=== PATIENT | female | born 1955 | race American Indian/Alaskan Native ===

== ENCOUNTER 2016-09-17 12:28 | Emergency (ER) | payer MEDICARE ==
[2016-09-17] MEDS ORDERED: Naproxen 550 mg Tab PO STA (13:40)
[2016-09-17] MEDS ORDERED: Naproxen 550 mg Tab PO ONE (13:48)
[2016-09-17] MEDS ORDERED: Bacitracin 500 Units/gm Oint Foilpak UD TOP ONE (13:51)
[2016-09-17] MEDS ORDERED: Bacitracin 500 Units/gm Oint Foilpak UD ONE (14:01)
--- NOTE | 2016-09-17 14:16 | C.PDOC ---
History Of Present Illness 60-year-old female, presents to the emergency department with complaints of left knee pain s/p mechanical fall just prior to arrival. Also notes that her leg ended up under her causing some lower leg pain. No change in sensation. No other trauma or pain. Pt was noted to have elevated BP on scene. She has a h/o HTN and took her BP medication this morning. Denies chest pain, dizziness, SOB, head trauma, or any other associated symptoms. No other complaints at this time. Time Seen by Provider: 09/17/16 13:32 Chief Complaint (Nursing): Lower Extremity Problem/Injury History Per: Patient History/Exam Limitations: no limitations Past Medical History Reviewed: Historical Data, Nursing Documentation, Vital Signs Vital Signs: Last Vital Signs Temp 98.2 F 09/17/16 14:38 Pulse 75 09/17/16 14:38 Resp 16 09/17/16 14:38 BP 155/75 H 09/17/16 14:38 Pulse Ox 99 09/17/16 14:50 - Medical History PMH: HTN Denies: Diabetes, Hepatitis, HIV, Seizures, Sexually Transmitted Disease Family History: States: Unknown Family Hx - Social History Hx Tobacco Use: No Hx Alcohol Use: Yes Hx Substance Use: No - Immunization History Hx Tetanus Toxoid Vaccination: No Hx Influenza Vaccination: Yes Hx Pneumococcal Vaccination: Yes Review Of Systems Except As Marked, All Systems Reviewed And Found Negative. Constitutional: Negative for: Fever, Chills Cardiovascular: Negative for: Chest Pain, Palpitations Respiratory: Negative for: Shortness of Breath Gastrointestinal: Negative for: Vomiting Musculoskeletal: Positive for: Leg Pain Skin: Negative for: Rash Neurological: Negative for: Weakness, Numbness, Headache, Dizziness Physical Exam - Physical Exam Appears: Non-toxic, No Acute Distress Skin: Warm, Dry, No Rash Head: Atraumatic, Normacephalic Eye(s): bilateral: Normal Inspection, EOMI Nose: Normal Oral Mucosa: Moist Lips: Normal Appearing Neck: Normal ROM Chest: Symmetrical Cardiovascular: Rhythm Regular Respiratory: Normal Breath Sounds, No Accessory Muscle Use Extremity: No Calf Tenderness, No Deformity, Other (Left knee: superficial abrasion. Mild tenderness to palpation. Decreased ROM secondary to pain and echymosis to left medial lower leg) Pulses: Left Dorsalis Pedis: Normal, Right Dorsalis Pedis: Normal Neurological/Psych: Oriented x3, Normal Speech, Normal Sensation ED Course And Treatment O2 Sat by Pulse Oximetry: 99 - Other Rad Knee XR X-Ray: Viewed By Me, Read By Radiologist Interpretation: PROCEDURE: Left Knee Radiographs. HISTORY: Pain. COMPARISON : None. FINDINGS: BONES: No acute fracture. JOINTS: Mild tricompartmental osteoarthritis. No articular erosion. JOINT EFFUSION: None. OTHER FINDINGS: None. IMPRESSION: Mild tricompartmental osteoarthritis. No acute fracture. Leg XR X-Ray: Viewed By Me, Read By Radiologist Interpretation: PROCEDURE: Radiographs of the left tibia and fibula. HISTORY: trauma. COMPARISON: None available. TECHNIQUE: Frontal and lateral views obtained. FINDINGS: BONES: No fracture or destructive lesion. JOINT SPACES: Unremarkable. OTHER FINDINGS: None. IMPRESSION: Unremarkable radiographs of the left tibia and fibula. Progress Note: Wound cleansed and dress by RN. Knee brace applied. Crutches given. Pt instructed RICE and follow up with ortho in 1-2 days. Disposition - Disposition Referrals: Mirella Tyler MD [Staff Provider] - Disposition: HOME/ ROUTINE Disposition Time: 14:15 Condition: STABLE Additional Instructions: Rest, ice and elevate the area. Follow up with bone doctor in 1-2 days. Instructions: Knee Pain (ED) - Clinical Impression Clinical Impression: HTN (hypertension), Knee contusion - Scribe Statement The provider has reviewed the documentation as recorded by the Scrmatt Tyler All medical record entries made by the Scribe were at my direction and personally dictated by me. I have reviewed the chart and agree that the record accurately reflects my personal performance of the history, physical exam, medical decision making, and the department course for this patient. I have also personally directed, reviewed, and agree with the discharge instructions and disposition.
[2016-09-17 14:38] VITALS: BP 155/75; PULSE 75; RESP 16; TEMP 98.2
[2016-09-17 14:49] VITALS: O2SAT 99
--- NOTE | 2016-09-17 15:49 | RAD ---
PROCEDURE: Radiographs of the left tibia and fibula. HISTORY: trauma COMPARISON: None available. TECHNIQUE: Frontal and lateral views obtained. FINDINGS: BONES: No fracture or destructive lesion. JOINT SPACES: Unremarkable. OTHER FINDINGS: None. IMPRESSION: Unremarkable radiographs of the left tibia and fibula.
--- NOTE | 2016-09-17 15:50 | RAD ---
PROCEDURE: Left Knee Radiographs. HISTORY: Pain. COMPARISON: None. FINDINGS: BONES: No acute fracture. JOINTS: Mild tricompartmental osteoarthritis. No articular erosion. JOINT EFFUSION: None. OTHER FINDINGS: None. IMPRESSION: Mild tricompartmental osteoarthritis. No acute fracture.
== END 2016-09-17 15:35 | disposition home or self-care (01) ==
LOC: C.ER 12:28
DX: S80.02XA Contusion of left knee, initial encounter (principal); W18.30XA Fall on same level, unspecified, initial encounter; I10 Essential (primary) hypertension
CPT/HCPCS: 73562; 73590; 97116; 97161; 99285; G8978; G8979; G8980

== ENCOUNTER 2016-10-25 08:00 | Day surgery (SDC) | payer MEDICARE ==
[2016-10-25] MEDS ORDERED: Propofol 10 mg/ml Inj (20 ML) ONE ×2 (09:32→09:41)
[2016-10-25] MEDS ORDERED: Simethicone 40 mg/0.6 ml Liquid (30 ml) ONE (09:43)
== END 2016-10-25 11:00 | disposition home or self-care (01) ==
LOC: C.ENDO 08:00
PROVIDERS: ATTEND Internal Medicine Gastroenterology
DX: R19.7 Diarrhea, unspecified (principal); K64.2 Third degree hemorrhoids
CPT/HCPCS: 45380; 88305; 88313; 88342; J2704

== ENCOUNTER 2017-06-15 13:42 | Inpatient (IN) | payer MEDICARE ==
[2017-06-15] MEDS ORDERED: Sodium Chloride 0.9% 1,000 ML IV ONE (14:23)
--- NOTE | 2017-06-15 14:27 | C.PDOC ---
History Of Present Illness 61F c/o sore throat worsening for 2 days. she also reports cough and says today she coughed and spit up a small amount with her sputum. Time Seen by Provider: 06/15/17 13:59 Chief Complaint (Nursing): Shortness Of Breath Past Medical History Vital Signs: Last Vital Signs Temp 97.7 F 06/18/17 16:16 Pulse 71 06/18/17 16:16 Resp 20 06/18/17 16:16 BP 126/83 06/18/17 16:16 Pulse Ox 93 L 06/18/17 07:02 - Medical History PMH: HTN Denies: Diabetes, Hepatitis, HIV, Seizures, Sexually Transmitted Disease Family History: States: Other Other Family History: nc - Social History Hx Tobacco Use: No Hx Alcohol Use: No Hx Substance Use: No - Immunization History Hx Tetanus Toxoid Vaccination: No Hx Influenza Vaccination: Yes Hx Pneumococcal Vaccination: Yes Review Of Systems Except As Marked, All Systems Reviewed And Found Negative. Constitutional: Negative for: Fever, Chills ENT: Positive for: Throat Pain Cardiovascular: Negative for: Chest Pain Respiratory: Positive for: Cough. Negative for: Shortness of Breath Gastrointestinal: Positive for: Nausea, Vomiting. Negative for: Abdominal Pain , Diarrhea Physical Exam - Physical Exam Appears: Non-toxic Skin: Warm, Dry Head: Atraumatic Eye(s): bilateral: PERRL Nose: No Epistaxis Oral Mucosa: Moist Tongue: No Swelling, No Lesions Lips: No Swelling, No Lesions Throat: Exudate, No Drooling, Other (tonsils symmetric, uvual midline) Neck: Normal ROM, Supple Cardiovascular: Rhythm Regular Respiratory: No Decreased Breath Sounds, No Accessory Muscle Use, No Rales, No Rhonchi, No Stridor, No Wheezing Gastrointestinal/Abdominal: Soft, No Tenderness Extremity: No Swelling Neurological/Psych: Oriented x3, Other (no focla deficits) ED Course And Treatment - Laboratory Results Result Diagrams: 06/15/17 15:05 06/15/17 15:05 O2 Sat by Pulse Oximetry: 92 Medical Decision Making Medical Decision Making: Case discussed with Dr. Martin who recommends Vancomycin, Azactam IV, and Bactrim PO. Disposition - Disposition Disposition: HOSPITALIZED Disposition Time: 17:43 Condition: STABLE - Clinical Impression Clinical Impression: Pneumonia
[2017-06-15] MEDS ORDERED: Sodium Chloride 0.9% 1,000 ML ONE (14:33)
[2017-06-15 15:10] LABS: BASO % 0.3 % (0.0-2.0); EOS # 0.4 K/uL (0.0-0.7); EOS % 3.8 % (0.0-4.0); HEMOGLOBIN 13.2 g/dL (11.0-16.0); LYMPH # 1.2 K/uL (1.0-4.3); LYMPH % 12.2 % (20.0-40.0); MEAN CELL VOLUME 92.1 fL (81.0-99.0); MEAN CORPUSCULAR HEMOGLOBIN 31.1 pg (27.0-31.0); MEAN CORPUSCULAR HGB CONC 33.8 g/dL (33.0-37.0); MEAN PLATELET VOLUME 7.9 fL (7.2-11.7); MONO # 0.6 K/uL (0.0-0.8); MONO % 5.6 % (0.0-10.0); NEUT # 7.8 K/uL (1.8-7.0); NEUT % 78.1 % (50.0-75.0); RBC 4.25 Mil/uL (3.80-5.20); RED CELL DISTRIBUTION WIDTH 13.5 % (11.5-14.5)
[2017-06-15 15:28] LABS: ALB/GLOB RATIO 1.1 (1.0-2.1); ALBUMIN 4.4 g/dL (3.5-5.0); ALT/SGPT 24 U/L (9-52); AST/SGOT 31 U/L (14-36); BLOOD UREA NITROGEN 14 mg/dL (7-17); CALCIUM 8.5 mg/dl (8.6-10.4); GFR AFRICAN-AMERICAN > 60; GFR NON-AFRICAN AMERICAN > 60
[2017-06-15] MEDS ORDERED: Iodixanol 320 mg/ml 150 ml Bottle IV ONE (17:09)
--- NOTE | 2017-06-15 17:09 | CT ---
PROCEDURE: CT Chest with contrast (Pulmonary Angiogram) HISTORY: hemoptysis COMPARISON: None available. TECHNIQUE: Axial computed tomography images were obtained of the chest in the pulmonary arterial phase of enhancement. Coronal and sagittal reformatted images were created and reviewed. Intravenous contrast dose: 100 mL Visipaque Radiation dose: Total exam DLP = 509.66 mGy-cm. This CT exam was performed using one or more of the following dose reduction techniques: Automated exposure control, adjustment of the mA and/or kV according to patient size, and/or use of iterative reconstruction technique. FINDINGS: PULMONARY ARTERIES: Unremarkable. No pulmonary embolism. AORTA: No acute findings. No thoracic aortic aneurysm. LUNGS: Airspace consolidation noted at the bilateral lower lobes may represent a pneumonia or aspiration. Perihilar opacities also seen at the right chest. Mild lower lobe bronchiectasis seen more prominent on the left side. The upper lobes are clear. PLEURAL SPACES: Unremarkable. No effusion or pneuomothorax. HEART: The heart is mildly enlarged. No evidence of pericardial effusion. LYMPH NODES: Mildly enlarged precarinal a and/or right paratracheal lymph nodes are noted. BONES, CHEST WALL: Unremarkable. No fracture or destructive lesion OTHER FINDINGS: Unremarkable. IMPRESSION: No evidence of pulmonary embolus. Airspace consolidation at the lower lobes and right perihilar region. The differential consideration includes multifocal pneumonia, aspiration, infection or inflammatory process of the lungs. Mildly enlarged precarinal and right paratracheal lymph node. Mild cardiomegaly.
--- NOTE | 2017-06-15 17:27 | RAD ---
HISTORY: cough COMPARISON: Comparison is made with 08/24/2012 TECHNIQUE: Chest PA and lateral FINDINGS: LUNGS: Hazy opacity noted at the right lung base may represent atelectasis or pneumonia. PLEURA: Blunting of the right costophrenic angle noted. CARDIOVASCULAR: Normal. OSSEOUS STRUCTURES: No significant abnormalities. VISUALIZED UPPER ABDOMEN: Normal. OTHER FINDINGS: None. IMPRESSION: Right lung base infiltrate and hazy opacity may represent atelectasis or pneumonia. Blunting of the right costophrenic angle.
[2017-06-15] MEDS ORDERED: Moxifloxacin IV 400mg/250ml NS 400 MG/250 ML BAG IVPB ONE (17:33)
[2017-06-15] MEDS ORDERED: Vancomycin 500 mg Inj IVPB STA (17:33)
[2017-06-15] MEDS ORDERED: Morphine 4 MG/ML VIAL ONE (17:48)
[2017-06-15] MEDS ORDERED: Tmp-Smz 800 mg-160 mg DS Tab ONE (17:48)
[2017-06-15] MEDS: Tmp-Smz 800 mg-160 mg DS Tab PO SCH (17:54)
[2017-06-15] MEDS: Aztreonam 1 GM in Sodium Chloride 0.9% 100 ML IVPB SCH (18:15)
--- NOTE | 2017-06-15 19:29 | CP.PCM.HP ---
Past Patient History - Past Social History Smoking Status: Never Smoked - CARDIAC Hx Hypertension: Yes - PULMONARY Hx Tuberculosis: No - NEUROLOGICAL Hx Seizures: No - HEMATOLOGICAL/ONCOLOGICAL Hx Human Immunodeficiency Virus (HIV): No - GENITOURINARY/GYNECOLOGICAL Hx Sexually Transmitted Disorders: No - PSYCHIATRIC Hx Substance Use: No - SURGICAL HISTORY Hx Surgeries: Yes Other/Comment: ANEURYSM CLIP. CYST REMOVAL Meds Allergies/Adverse Reactions: Allergies Allergy/AdvReac Type Severity Reaction Status Date / Time Penicillins Allergy Verified 06/15/17 14:08 shellfish Allergy Severe RASH Uncoded 09/17/16 12:37 seafood Allergy Uncoded 06/15/17 14:08 Results - Vital Signs Recent Vital Signs: Last Vital Signs Temp 99.2 F 06/15/17 14:11 Pulse 98 H 06/15/17 19:16 Resp 16 06/15/17 19:16 BP 128/76 06/15/17 19:16 Pulse Ox 94 L 06/15/17 19:16 - Labs Result Diagrams: 06/15/17 15:05 06/15/17 15:05 Labs: Laboratory Results - last 24 hr 06/15/17 06/15/17 06/15/17 14:22 14:23 15:05 WBC 10.0 RBC 4.25 Hgb 13.2 Hct 39.1 MCV 92.1 MCH 31.1 H MCHC 33.8 RDW 13.5 Plt Count 154 MPV 7.9 Neut % (Auto) 78.1 H Lymph % (Auto) 12.2 L [place] % (Auto) 5.6 Eos % (Auto) 3.8 Baso % (Auto) 0.3 Neut # 7.8 H Lymph # 1.2 [place] # 0.6 Eos # 0.4 Baso # 0.0 Sodium Potassium Chloride Carbon Dioxide Anion Gap BUN Creatinine Est GFR ( Amer) Est GFR (Non-Af Amer) Random Glucose Calcium Total Bilirubin AST ALT Alkaline Phosphatase Total Protein Albumin Globulin Albumin/Globulin Ratio Influenza Typ A,B (EIA) Negative for flu a/b Grp A Beta Strep Ag Negative Blood Type Antibody Screen 06/15/17 06/15/17 15:05 15:16 WBC RBC Hgb Hct MCV MCH MCHC RDW Plt Count MPV Neut % (Auto) Lymph % (Auto) [place] % (Auto) Eos % (Auto) Baso % (Auto) Neut # Lymph # [place] # Eos # Baso # Sodium 134 Potassium 3.8 Chloride 98 Carbon Dioxide 26 Anion Gap 13 BUN 14 Creatinine 0.9 Est GFR ( Amer) > 60 Est GFR (Non-Af Amer) > 60 Random Glucose 140 H Calcium 8.5 L Total Bilirubin 0.6 AST 31 ALT 24 Alkaline Phosphatase 94 Total Protein 8.3 Albumin 4.4 Globulin 3.9 Albumin/Globulin Ratio 1.1 Influenza Typ A,B (EIA) Grp A Beta Strep Ag Blood Type O POSITIVE Antibody Screen Negative
--- NOTE | 2017-06-16 00:05 | CP.PCM.PN ---
Subjective - Date & Time of Evaluation Date of Evaluation: 06/16/17 Time of Evaluation: 09:00 - Subjective Subjective: h and p dicteted. Objective - Vital Signs/Intake and Output Vital Signs (last 24 hours): Temp Pulse Resp BP Pulse Ox 99.1 F 98 H 20 123/69 94 L 06/15/17 23:15 06/15/17 22:40 06/15/17 22:40 06/15/17 22:40 06/15/17 22:40 - Medications Medications: Current Medications Aspirin (Ecotrin) 81 mg PO DAILY [facility] Clonidine HCl (Catapres) 0.2 mg PO BID [facility] Enoxaparin Sodium (Lovenox) 30 mg SC DAILY [facility] Hydrochlorothiazide (Microzide) 12.5 mg PO DAILY [facility] Aztreonam 1 gm/ Sodium (Chloride) 100 mls @ 200 mls/hr IVPB Q8H [facility] Last Admin: 06/15/17 18:15 Dose: 200 mls/hr Vancomycin HCl 1 gm/ Sodium (Chloride) 250 mls @ 166.7 mls/hr IVPB Q24H [facility] Losartan Potassium (Cozaar) 100 mg PO DAILY [facility] Pantoprazole Sodium (Protonix Ec Tab) 40 mg PO DAILY [facility] Trimethoprim/Sulfamethoxazole (Bactrim Ds Tab) 1 tab PO Q12H [facility] Last Admin: 06/15/17 17:54 Dose: 1 tab - Labs Labs: 06/15/17 15:05 06/15/17 15:05
[2017-06-16] MEDS: Aztreonam 1 GM in Sodium Chloride 0.9% 100 ML IVPB SCH ×3 (01:46→17:34)
[2017-06-16] MEDS: Tmp-Smz 800 mg-160 mg DS Tab PO SCH ×2 (04:59→17:34)
--- NOTE | 2017-06-16 07:42 | HP ---
HISTORY OF PRESENT ILLNESS: This is a 61-year-old female who came to the emergency room with history of severe shortness of breath associated with sore throat. Patient also claims low-grade fever. Patient coughed up blood in the sputum today. So, she came to the emergency room. No history of chest pain. REVIEW OF SYSTEMS: Cardiovascular system: Negative for chest pain. Respiratory system: As mentioned above. Gastrointestinal system: Negative for nausea, vomiting, abdominal pain. Central nervous system: No focal neurological complaints offered. No edema of the legs. Genitourinary: No urinary complaints. Psychiatric: Patient is stable. All other systems are negative. PAST HISTORY: History of hypertension. No diabetes. No myocardial infarction. Patient is HIV positive. FAMILY HISTORY: No known inherited disease. SOCIAL HISTORY: No alcoholism. Nonsmoker. Denies substance abuse. ALLERGIES: PATIENT IS ALLERGIC TO PENICILLIN, SHELLFISH, AND SEA FOODS. MEDICATIONS: Patient's medications are reviewed by me. PHYSICAL EXAMINATION: GENERAL: This is a 61-year-old female awake, comfortable. VITAL SIGNS: Temperature 99.2, pulse 94, respirations 16, blood pressure 135/74 mmHg, pulse ox is 92% on room air. HEENT: Normal. NECK: JVP is flat. Carotids, no bruits. LUNGS: No rales, no wheezing. HEART: S1, S2 normal. No gallop. No murmur. ABDOMEN: Soft, nontender. No organomegaly. CENTRAL NERVOUS SYSTEM: No focal neurological deficits. No edema of the legs. LABORATORY DATA: On admission, CBC is within normal limit. BMP is grossly normal. Chest x-ray shows bilateral infiltrates. IMPRESSION: Pneumonia, human immunodeficiency virus positive, hemoptysis. PLAN: Patient will be admitted to the floor. We will give IV antibiotic. We will get consult with Dr. Martin. Other workup as needed. Abby Vásquez MD
[2017-06-16] MEDS: Pantoprazole 40 mg EC Tab PO SCH (10:33)
[2017-06-16] MEDS: Enoxaparin 30 mg Syringe SC SCH (10:36)
--- NOTE | 2017-06-16 17:10 | CP.PCM.CON ---
History of Present Illness - History of Present Illness History of Present Illness: 61 yo female with Hx HIV HTN OA admitted with severe multifocal pneumonia/ sepsis claims compliance with HIV meds Review of Systems - Constitutional Constitutional: As Per HPI - EENT Eyes: absent: As Per HPI, Blind Spots, Blurred Vision, Change in Vision, Decreased Night Vision, Diplopia, Discharge, Dry Eye, Exophthalmos, Floaters, Irritation, Itchy Eyes, Loss of Peripheral Vision, Pain, Photophobia, Requires Corrective Lenses, Sees Flashes, Spots in Vision, Tunnel Vision, Other Visual Disturbances, Loss of Vision, Other Ears: absent: As Per HPI, Decreased Hearing, Ear Discharge, Ear Pain, Tinnitus, Abnormal Hearing, Disequilibrium, Dizziness, Other Nose/Mouth/Throat: As Per HPI - Breasts Breasts: absent: As Per HPI, Change in Shape, Mass, Pain, Nipple Discharge, Nipple Inversion, Skin Changes, Swelling, Other - Cardiovascular Cardiovascular: As Per HPI - Respiratory Respiratory: As Per HPI, Cough, Dyspnea. absent: Hemoptysis - Gastrointestinal Gastrointestinal: absent: As Per HPI, Abdominal Pain, Belching, Bloating, Change in Bowel Habits, Change in Stool Character, Coffee Ground Emesis, Constipation, Cramping, Diarrhea, Dyspepsia, Dysphagia, Early Satiety, Excessive Flatus, Fecal Incontinence, Heartburn, Hematemesis, Hematochezia, Loose Stools, Melena, Nausea, Odynophagia, Temesmus, Vomiting, Other - Genitourinary Genitourinary: absent: As Per HPI, Change in Urinary Stream, Difficulty Urinating, Dysuria, Flank Pain, Hematuria, Pyuria, Nocturia, Urinary Incontinence, Urinary Frequency, Urinary Hesitance, Urinary Urgency, Voiding Freq/Small Amts, Freq UTI, Hx Renal/Bladder Calculi, Hx /Renal Surgery, Bladder Distension, Other - Reproductive: Female Reproductive:Female: absent: As Per HPI, Amenorrhea, Amenorrhea/ Control, Currently Menstual, Cycle <21 Days, Cycle >35 Days, Cycle Variable, Menses 1-7 Days, Menses >/= 8 Days, Menses Variable, Cycle > 4 Weeks Between, No Menses for 6 Months, Heavy Menses, Light Menses, Normal Menses, Spotting Between Cycles , S/P Hysterectomy, Menopausal, Post Menopausal, Premenarche, Abnormal Vaginal Bleeding, Dysmenorrhea, Dyspareunia, Genital Lesions, Genital Pruritis, Pelvic Pain, Prolapse Symptoms, Sexual Dysfunction, Vaginal Discharge, Vaginal Dryness , Vaginal Odor, Vaginal Pruritis, Other - Menstruation Menstruation: absent: As Per HPI, Amenorrhea, Amenorrhea/ Control, Currently Menstual, Cycle <21 Days, Cycle >35 Days, Cycle Variable, Menses 1-7 Days, Menses >/= 8 Days, Menses Variable, Cycle > 4 Weeks Between, No Menses for 6 Months, Heavy Menses, Light Menses, Normal Menses, Spotting Between Cycles , S/P Hysterectomy, Menopausal, Post Menopausal, Premenarche, Abnormal Vaginal Bleeding, Dysmenorrhea, Other - Musculoskeletal Musculoskeletal: absent: As Per HPI, Abnormal Gait, Arthralgias, Atrophy, Back Pain, Deformity, Joint Swelling, Limited Range of Motion, Loss of Height, Muscle Cramps, Muscle Weakness, Myalgias, Neck Pain, Numbness, Radiating Pain into Limb, Stiffness, Tingling, Other - Integumentary Integumentary: absent: As Per HPI, Acne, Alopecia, Bleeding Lesions, Change in Hair, Change in Nails, Change in Pigmentation, Changing Lesions, Dry Skin, Erythema, Furuncle, Hirsutism, Lesions, New Lesions, Non-Healing Lesions, Photosensitivity, Pruritus, Rash, Skin Pain, Skin Ulcer, Sores, Striae, Swelling , Unusual Bruising, Wounds, Jaundice, Other - Neurological Neurological: absent: As Per HPI, Abnormal Gait, Abnormal Hearing, Abnormal Movements, Abnormal Speech, Behavioral Changes, Burning Sensations, Confusion, Convulsions, Disequilibrium, Dizziness, Numbness, Focal Weakness, Frequent Falls , Headaches, Lack of Coordination, Loss of Vision, Memory Loss, Paresthesias, Radicular Pain, Restless Legs, Sensory Deficit, Syncope, Tingling, Tremor, Vertigo, Weakness, Other Visual Disturbances, Other - Psychiatric Psychiatric: absent: As Per HPI, Abnormal Sleep Pattern, Anhedonia, Anxiety, Auditory Hallucinations, Behavioral Changes, Change in Appetite, Change in Libido, Confusion, Depression, Difficulty Concentrating, Hallucinations, Homicidal Ideation, Hopelessness, Irritability, Memory Loss, Mood Swings, Panic Attacks, Paranoia, Suicidal Ideation, Visual Hallucinations, Tactile Hallucinations, Other - Endocrine Endocrine: absent: As Per HPI, Change in Body Appearance, Change in Libido, Cold Intolorance, Deepening of Voice, Excessive Sweating, Fatigue, Flushing, Heat Intolorance, Increase in Ring/Shoe/Hat Size, Palpitations, Polydipsia, Polyphagia, Polyuria, Other - Hematologic/Lymphatic Hematologic: absent: As Per HPI, Easy Bleeding, Easy Bruising, Lymphadenopathy, Other Past Patient History - Past Medical History & Family History Past Medical History?: Yes - Past Social History Smoking Status: Never Smoked - CARDIAC Hx Hypertension: Yes - PULMONARY Hx Tuberculosis: No - NEUROLOGICAL Hx Seizures: No - HEMATOLOGICAL/ONCOLOGICAL Hx Human Immunodeficiency Virus (HIV): No - MUSCULOSKELETAL/RHEUMATOLOGICAL Hx Falls: No - GENITOURINARY/GYNECOLOGICAL Hx Sexually Transmitted Disorders: No - PSYCHIATRIC Hx Substance Use: No - SURGICAL HISTORY Hx Surgeries: Yes Other/Comment: ANEURYSM CLIP. CYST REMOVAL - ANESTHESIA Hx Anesthesia: Yes Hx Anesthesia Reactions: No Meds Allergies/Adverse Reactions: Allergies Allergy/AdvReac Type Severity Reaction Status Date / Time Penicillins Allergy Verified 06/15/17 14:08 shellfish Allergy Severe RASH Uncoded 09/17/16 12:37 seafood Allergy Uncoded 06/15/17 14:08 - Medications Medications: Current Medications Aspirin (Ecotrin) 81 mg PO DAILY [facility] Last Admin: 06/16/17 10:36 Dose: 81 mg Benzocaine/Menthol (Cepacol Sore Throat) 1 vikas MT Q4 [facility] Clonidine HCl (Catapres) 0.2 mg PO BID [facility] Last Admin: 06/16/17 10:33 Dose: 0.2 mg Enoxaparin Sodium (Lovenox) 30 mg SC DAILY [facility] Last Admin: 06/16/17 10:36 Dose: 30 mg Hydrochlorothiazide (Microzide) 12.5 mg PO DAILY [facility] Last Admin: 06/16/17 10:38 Dose: 12.5 mg Aztreonam 1 gm/ Sodium (Chloride) 100 mls @ 200 mls/hr IVPB Q8H [facility] Last Admin: 06/16/17 10:33 Dose: 200 mls/hr Vancomycin HCl 1 gm/ Sodium (Chloride) 250 mls @ 166.7 mls/hr IVPB Q24H [facility] Losartan Potassium (Cozaar) 100 mg PO DAILY [facility] Last Admin: 06/16/17 10:33 Dose: 100 mg Pantoprazole Sodium (Protonix Ec Tab) 40 mg PO DAILY [facility] Last Admin: 06/16/17 10:33 Dose: 40 mg Trimethoprim/Sulfamethoxazole (Bactrim Ds Tab) 1 tab PO Q12H [facility] Last Admin: 06/16/17 04:59 Dose: 1 tab Physical Exam - Constitutional Appears: Non-toxic, Chronically Ill - Head Exam Head Exam: ATRAUMATIC, NORMAL INSPECTION, NORMOCEPHALIC - Eye Exam Eye Exam: EOMI, PERRL. absent: Scleral icterus - ENT Exam ENT Exam: Mucous Membranes Dry, Normal External Ear Exam, Normal Oropharynx - Neck Exam Neck exam: Negative for: Lymphadenopathy, Thyromegaly - Respiratory Exam Respiratory Exam: Decreased Breath Sounds, Rales, Rhonchi - Cardiovascular Exam Cardiovascular Exam: REGULAR RHYTHM, +S1, +S2 - GI/Abdominal Exam GI & Abdominal Exam: Diminished Bowel Sounds, Soft. absent: Tenderness - Rectal Exam Rectal Exam: Deferred - Exam Exam: NORMAL INSPECTION - Extremities Exam Extremities exam: Positive for: pedal pulses present. Negative for: calf tenderness, pedal edema, tenderness - Back Exam Back exam: absent: CVA tenderness (L), CVA tenderness (R) - Neurological Exam Neurological exam: Alert, CN II-XII Intact, Oriented x3, Reflexes Normal - Psychiatric Exam Psychiatric exam: Normal Mood - Skin Skin Exam: Dry Results - Vital Signs Recent Vital Signs: Last Vital Signs Temp 98.6 F 06/16/17 16:39 Pulse 88 06/16/17 16:39 Resp 20 06/16/17 16:39 BP 107/68 06/16/17 16:39 Pulse Ox 93 L 06/16/17 16:39 - Labs Result Diagrams: 06/15/17 15:05 06/15/17 15:05 Assessment & Plan (1) Pneumonia Status: Acute (2) Pneumonia Status: Acute
[2017-06-16] MEDS: Benzocaine/Menthol (Cepacol) Lozenge MT PRN (17:34)
[2017-06-16] MEDS ORDERED: Benzocaine/Menthol (Cepacol) Lozenge MT SCH (20:00)
--- NOTE | 2017-06-16 20:28 | CP.PCM.PN ---
Subjective - Date & Time of Evaluation Date of Evaluation: 06/16/17 Time of Evaluation: 11:40 - Subjective Subjective: clinically same Objective - Vital Signs/Intake and Output Vital Signs (last 24 hours): Temp Pulse Resp BP Pulse Ox 98.6 F 88 20 107/68 93 L 06/16/17 16:39 06/16/17 16:39 06/16/17 16:39 06/16/17 16:39 06/16/17 16:39 - Medications Medications: Current Medications Aspirin (Ecotrin) 81 mg PO DAILY [facility] Last Admin: 06/16/17 10:36 Dose: 81 mg Benzocaine/Menthol (Cepacol Sore Throat) 1 vikas MT Q4 PRN PRN Reason: Sore Throat Last Admin: 06/16/17 17:34 Dose: 1 vikas Clonidine HCl (Catapres) 0.2 mg PO BID [facility] Last Admin: 06/16/17 17:34 Dose: 0.2 mg Efavirenz/Emtricitabine/Tenofovir (Atripla 600 Mg-200 Mg-300 Mg) 1 tab PO DAILY [facility] Enoxaparin Sodium (Lovenox) 30 mg SC DAILY [facility] Last Admin: 06/16/17 10:36 Dose: 30 mg Hydrochlorothiazide (Microzide) 12.5 mg PO DAILY [facility] Last Admin: 06/16/17 10:38 Dose: 12.5 mg Aztreonam 1 gm/ Sodium (Chloride) 100 mls @ 200 mls/hr IVPB Q8H [facility] Last Admin: 06/16/17 17:34 Dose: 200 mls/hr Vancomycin HCl 1,000 mg/ (Sodium Chloride) 200 mls @ 166.6 mls/hr IVPB Q12H [facility] Last Admin: 06/16/17 19:00 Dose: 166.6 mls/hr Losartan Potassium (Cozaar) 100 mg PO DAILY [facility] Last Admin: 06/16/17 10:33 Dose: 100 mg Pantoprazole Sodium (Protonix Ec Tab) 40 mg PO DAILY [facility] Last Admin: 06/16/17 10:33 Dose: 40 mg Trimethoprim/Sulfamethoxazole (Bactrim Ds Tab) 1 tab PO Q12H [facility] Last Admin: 06/16/17 17:34 Dose: 1 tab - Labs Labs: 06/15/17 15:05 06/15/17 15:05
[2017-06-16 21:29] LABS: B-TYPE NATRIURETIC PEPTIDE 306 pg/mL (0-900)
--- NOTE | 2017-06-16 22:38 | CP.PCM.PN ---
Subjective - Date & Time of Evaluation Date of Evaluation: 06/16/17 Time of Evaluation: 12:40 - Subjective Subjective: CONDITION SAME. AFEBRILE. PNEUMONIA. HIV. Objective - Vital Signs/Intake and Output Vital Signs (last 24 hours): Temp Pulse Resp BP Pulse Ox 98.6 F 88 20 107/68 93 L 06/16/17 16:39 06/16/17 16:39 06/16/17 16:39 06/16/17 16:39 06/16/17 16:39 - Medications Medications: Current Medications Aspirin (Ecotrin) 81 mg PO DAILY [facility] Last Admin: 06/16/17 10:36 Dose: 81 mg Benzocaine/Menthol (Cepacol Sore Throat) 1 vikas MT Q4 PRN PRN Reason: Sore Throat Last Admin: 06/16/17 17:34 Dose: 1 vikas Clonidine HCl (Catapres) 0.2 mg PO BID [facility] Last Admin: 06/16/17 17:34 Dose: 0.2 mg Efavirenz/Emtricitabine/Tenofovir (Atripla 600 Mg-200 Mg-300 Mg) 1 tab PO DAILY [facility] Enoxaparin Sodium (Lovenox) 30 mg SC DAILY [facility] Last Admin: 06/16/17 10:36 Dose: 30 mg Hydrochlorothiazide (Microzide) 12.5 mg PO DAILY [facility] Last Admin: 06/16/17 10:38 Dose: 12.5 mg Aztreonam 1 gm/ Sodium (Chloride) 100 mls @ 200 mls/hr IVPB Q8H [facility] Last Admin: 06/16/17 17:34 Dose: 200 mls/hr Vancomycin HCl 1,000 mg/ (Sodium Chloride) 200 mls @ 166.6 mls/hr IVPB Q12H [facility] Last Admin: 06/16/17 19:00 Dose: 166.6 mls/hr Losartan Potassium (Cozaar) 100 mg PO DAILY [facility] Last Admin: 06/16/17 10:33 Dose: 100 mg Pantoprazole Sodium (Protonix Ec Tab) 40 mg PO DAILY [facility] Last Admin: 06/16/17 10:33 Dose: 40 mg Trimethoprim/Sulfamethoxazole (Bactrim Ds Tab) 1 tab PO Q12H [facility] Last Admin: 06/16/17 17:34 Dose: 1 tab - Labs Labs: 06/15/17 15:05 06/15/17 15:05 - Constitutional Appears: No Acute Distress, Chronically Ill - Eye Exam Eye Exam: Normal appearance, PERRL - ENT Exam ENT Exam: Mucous Membranes Moist - Respiratory Exam Respiratory Exam: Clear to Ausculation Bilateral, NORMAL BREATHING PATTERN - Cardiovascular Exam Cardiovascular Exam: REGULAR RHYTHM, +S1, +S2 - GI/Abdominal Exam GI & Abdominal Exam: Soft, Normal Bowel Sounds - Extremities Exam Extremities Exam: Full ROM, Normal Capillary Refill, Normal Inspection. absent : Joint Swelling, Pedal Edema - Back Exam Back Exam: NORMAL INSPECTION - Neurological Exam Neurological Exam: Alert, Awake, CN II-XII Intact, Normal Gait, Oriented x3 Assessment and Plan - Assessment and Plan (Free Text) Assessment: SAME. Plan: CT ID TREATMENT.
[2017-06-17] MEDS: Aztreonam 1 GM in Sodium Chloride 0.9% 100 ML IVPB SCH ×3 (01:48→18:36)
[2017-06-17] MEDS: Tmp-Smz 800 mg-160 mg DS Tab PO SCH ×2 (06:20→18:39)
[2017-06-17] MEDS: Efavirenz/Emtricitabine/Teno 1 TAB PO SCH (09:51)
[2017-06-17] MEDS: Enoxaparin 30 mg Syringe SC SCH (09:52)
[2017-06-17] MEDS: Pantoprazole 40 mg EC Tab PO SCH (09:52)
--- NOTE | 2017-06-17 10:53 | CP.PCM.PN ---
Subjective - Date & Time of Evaluation Date of Evaluation: 06/17/17 Time of Evaluation: 08:00 - Subjective Subjective: still spiking iv rx renewed Objective - Vital Signs/Intake and Output Vital Signs (last 24 hours): Temp Pulse Resp BP Pulse Ox 100.4 F H 79 20 113/76 94 L 06/17/17 07:00 06/17/17 07:00 06/17/17 07:00 06/17/17 07:00 06/17/17 07:00 - Medications Medications: Current Medications Aspirin (Ecotrin) 81 mg PO DAILY [facility] Last Admin: 06/17/17 09:52 Dose: 81 mg Benzocaine/Menthol (Cepacol Sore Throat) 1 vikas MT Q4 PRN PRN Reason: Sore Throat Last Admin: 06/16/17 17:34 Dose: 1 vikas Clonidine HCl (Catapres) 0.2 mg PO BID [facility] Last Admin: 06/17/17 09:52 Dose: 0.2 mg Efavirenz/Emtricitabine/Tenofovir (Atripla 600 Mg-200 Mg-300 Mg) 1 tab PO DAILY [facility] Last Admin: 06/17/17 09:51 Dose: 1 tab Enoxaparin Sodium (Lovenox) 30 mg SC DAILY [facility] Last Admin: 06/17/17 09:52 Dose: 30 mg Hydrochlorothiazide (Microzide) 12.5 mg PO DAILY [facility] Last Admin: 06/17/17 09:52 Dose: 12.5 mg Aztreonam 1 gm/ Sodium (Chloride) 100 mls @ 200 mls/hr IVPB Q8H [facility] Last Admin: 06/17/17 01:48 Dose: 200 mls/hr Vancomycin HCl 1,000 mg/ (Sodium Chloride) 200 mls @ 166.6 mls/hr IVPB Q12H [facility] Last Admin: 06/17/17 06:24 Dose: 166.6 mls/hr Losartan Potassium (Cozaar) 100 mg PO DAILY [facility] Last Admin: 06/17/17 09:52 Dose: 100 mg Pantoprazole Sodium (Protonix Ec Tab) 40 mg PO DAILY [facility] Last Admin: 06/17/17 09:52 Dose: 40 mg Trimethoprim/Sulfamethoxazole (Bactrim Ds Tab) 1 tab PO Q12H [facility] Last Admin: 06/17/17 06:20 Dose: 1 tab - Labs Labs: 06/15/17 15:05 06/15/17 15:05 - Constitutional Appears: Chronically Ill - Head Exam Head Exam: NORMOCEPHALIC - Eye Exam Eye Exam: PERRL - ENT Exam ENT Exam: Mucous Membranes Dry - Neck Exam Neck Exam: absent: Lymphadenopathy - Respiratory Exam Respiratory Exam: Decreased Breath Sounds - Cardiovascular Exam Cardiovascular Exam: REGULAR RHYTHM - GI/Abdominal Exam GI & Abdominal Exam: Distended - Rectal Exam Rectal Exam: Deferred Assessment and Plan (1) Pneumonia Status: Acute (2) Pneumonia Status: Acute - Assessment and Plan (Free Text) Assessment: HIV/AIDS by hx
--- NOTE | 2017-06-17 12:42 | CP.PCM.PN ---
Subjective - Date & Time of Evaluation Date of Evaluation: 06/17/17 Time of Evaluation: 12:39 - Subjective Subjective: FEBRILE. COUGH. HEMOPTYSIS. HIV. Objective - Vital Signs/Intake and Output Vital Signs (last 24 hours): Temp Pulse Resp BP Pulse Ox 100.4 F H 79 20 113/76 94 L 06/17/17 11:22 06/17/17 07:00 06/17/17 07:00 06/17/17 07:00 06/17/17 07:00 - Medications Medications: Current Medications Aspirin (Ecotrin) 81 mg PO DAILY [facility] Last Admin: 06/17/17 09:52 Dose: 81 mg Benzocaine/Menthol (Cepacol Sore Throat) 1 vikas MT Q4 PRN PRN Reason: Sore Throat Last Admin: 06/16/17 17:34 Dose: 1 vikas Clonidine HCl (Catapres) 0.2 mg PO BID [facility] Last Admin: 06/17/17 09:52 Dose: 0.2 mg Efavirenz/Emtricitabine/Tenofovir (Atripla 600 Mg-200 Mg-300 Mg) 1 tab PO DAILY [facility] Last Admin: 06/17/17 09:51 Dose: 1 tab Enoxaparin Sodium (Lovenox) 30 mg SC DAILY [facility] Last Admin: 06/17/17 09:52 Dose: 30 mg Hydrochlorothiazide (Microzide) 12.5 mg PO DAILY [facility] Last Admin: 06/17/17 09:52 Dose: 12.5 mg Aztreonam 1 gm/ Sodium (Chloride) 100 mls @ 200 mls/hr IVPB Q8H [facility] Last Admin: 06/17/17 01:48 Dose: 200 mls/hr Vancomycin HCl 1,000 mg/ (Sodium Chloride) 200 mls @ 166.6 mls/hr IVPB Q12H [facility] Last Admin: 06/17/17 06:24 Dose: 166.6 mls/hr Losartan Potassium (Cozaar) 100 mg PO DAILY [facility] Last Admin: 06/17/17 09:52 Dose: 100 mg Pantoprazole Sodium (Protonix Ec Tab) 40 mg PO DAILY [facility] Last Admin: 06/17/17 09:52 Dose: 40 mg Trimethoprim/Sulfamethoxazole (Bactrim Ds Tab) 1 tab PO Q12H [facility] Last Admin: 06/17/17 06:20 Dose: 1 tab - Labs Labs: 06/15/17 15:05 06/15/17 15:05 - Constitutional Appears: No Acute Distress, Chronically Ill - Eye Exam Eye Exam: Normal appearance, PERRL - ENT Exam ENT Exam: Normal Exam - Respiratory Exam Respiratory Exam: Clear to Ausculation Bilateral, NORMAL BREATHING PATTERN - Cardiovascular Exam Cardiovascular Exam: REGULAR RHYTHM, +S1, +S2 - GI/Abdominal Exam GI & Abdominal Exam: Soft, Normal Bowel Sounds - Extremities Exam Extremities Exam: Full ROM, Normal Capillary Refill, Normal Inspection. absent : Joint Swelling, Pedal Edema - Neurological Exam Neurological Exam: Alert, Awake, CN II-XII Intact, Normal Gait, Oriented x3 Assessment and Plan - Assessment and Plan (Free Text) Assessment: PNEUMONIA. BILATERAL. HIV. Plan: FOR IV ANTIBIOTICS.
--- NOTE | 2017-06-17 18:09 | CP.PCM.CON ---
History of Present Illness - History of Present Illness History of Present Illness: The patient was seen and examined this morning. She states that her dyspnea has not improved. She was able to sleep somewhat and is now resting comfortably. Her voice is muffled due to some chest pain secondary to cough and sore throat. She admits to some shortness of breath, cough, sputum production, and sore throat. She denies fever, chills, palpitations, and hemoptysis. Vital signs: Temperature: 100.4 F Pulse: 79 Respiratory rate: 20 Blood pressure: 113/76 mm Hg Pulse oximetry: 94% RA Physical examination: Cardiovascular: RRR, +s1, +s2, no murmurs/rubs/gallops Pulmonary: diffuse wheezing, normal breathing pattern, muffled voice Labs: Microbiology: Influenza negative Strep negative Blood cultures x2 negative Assessment & Plan: Community acquired pneumonia * CXR and CT evidence of bilateral pulmonary infiltrates at lung bases * PCP pneumonia can effectively be ruled out as the patient has mildly elevated LDH, lack of severe hypoxia, and lack of CXR/CT evidence of PCP pneumonia. * Continue IV antibiotics Past Patient History - Past Medical History & Family History Past Medical History?: Yes - Past Social History Smoking Status: Never Smoked - CARDIAC Hx Hypertension: Yes - PULMONARY Hx Tuberculosis: No - NEUROLOGICAL Hx Seizures: No - HEMATOLOGICAL/ONCOLOGICAL Hx Human Immunodeficiency Virus (HIV): No - MUSCULOSKELETAL/RHEUMATOLOGICAL Hx Falls: No - GENITOURINARY/GYNECOLOGICAL Hx Sexually Transmitted Disorders: No - PSYCHIATRIC Hx Substance Use: No - SURGICAL HISTORY Hx Surgeries: Yes Other/Comment: ANEURYSM CLIP. CYST REMOVAL - ANESTHESIA Hx Anesthesia: Yes Hx Anesthesia Reactions: No Meds Allergies/Adverse Reactions: Allergies Allergy/AdvReac Type Severity Reaction Status Date / Time Penicillins Allergy Verified 06/15/17 14:08 shellfish Allergy Severe RASH Uncoded 09/17/16 12:37 seafood Allergy Uncoded 06/15/17 14:08 - Medications Medications: Current Medications Aspirin (Ecotrin) 81 mg PO DAILY [facility] Last Admin: 06/17/17 09:52 Dose: 81 mg Benzocaine/Menthol (Cepacol Sore Throat) 1 vikas MT Q4 PRN PRN Reason: Sore Throat Last Admin: 06/16/17 17:34 Dose: 1 vikas Clonidine HCl (Catapres) 0.2 mg PO BID [facility] Last Admin: 06/17/17 09:52 Dose: 0.2 mg Efavirenz/Emtricitabine/Tenofovir (Atripla 600 Mg-200 Mg-300 Mg) 1 tab PO DAILY [facility] Last Admin: 06/17/17 09:51 Dose: 1 tab Enoxaparin Sodium (Lovenox) 30 mg SC DAILY [facility] Last Admin: 06/17/17 09:52 Dose: 30 mg Hydrochlorothiazide (Microzide) 12.5 mg PO DAILY [facility] Last Admin: 06/17/17 09:52 Dose: 12.5 mg Aztreonam 1 gm/ Sodium (Chloride) 100 mls @ 200 mls/hr IVPB Q8H [facility] Last Admin: 06/17/17 15:59 Dose: 200 mls/hr Vancomycin HCl 1,000 mg/ (Sodium Chloride) 200 mls @ 166.6 mls/hr IVPB Q12H [facility] Last Admin: 06/17/17 06:24 Dose: 166.6 mls/hr Losartan Potassium (Cozaar) 100 mg PO DAILY [facility] Last Admin: 06/17/17 09:52 Dose: 100 mg Pantoprazole Sodium (Protonix Ec Tab) 40 mg PO DAILY [facility] Last Admin: 06/17/17 09:52 Dose: 40 mg Trimethoprim/Sulfamethoxazole (Bactrim Ds Tab) 1 tab PO Q12H [facility] Last Admin: 06/17/17 06:20 Dose: 1 tab Results - Vital Signs Recent Vital Signs: Last Vital Signs Temp 97.4 F L 06/17/17 16:03 Pulse 67 06/17/17 16:03 Resp 20 06/17/17 16:03 BP 120/77 06/17/17 16:03 Pulse Ox 91 L 06/17/17 16:03 - Labs Result Diagrams: 06/15/17 15:05 06/15/17 15:05 Labs: Laboratory Results - last 24 hr 06/16/17 06/16/17 06/17/17 21:00 21:49 14:53 Lactate Dehydrogenase 378 NT-Pro-B Natriuret Pep 306 Vancomycin Trough 12.1 H Ur L.pneumophila Ag Negative
--- NOTE | 2017-06-17 18:51 | CP.PCM.PN ---
Subjective - Date & Time of Evaluation Date of Evaluation: 06/17/17 Time of Evaluation: 11:00 - Subjective Subjective: clinically same Objective - Vital Signs/Intake and Output Vital Signs (last 24 hours): Temp Pulse Resp BP Pulse Ox 97.4 F L 78 20 124/82 91 L 06/17/17 16:03 06/17/17 18:44 06/17/17 16:03 06/17/17 18:44 06/17/17 16:03 - Medications Medications: Current Medications Aspirin (Ecotrin) 81 mg PO DAILY [facility] Last Admin: 06/17/17 09:52 Dose: 81 mg Benzocaine/Menthol (Cepacol Sore Throat) 1 vikas MT Q4 PRN PRN Reason: Sore Throat Last Admin: 06/16/17 17:34 Dose: 1 vikas Clonidine HCl (Catapres) 0.2 mg PO BID [facility] Last Admin: 06/17/17 18:39 Dose: 0.2 mg Efavirenz/Emtricitabine/Tenofovir (Atripla 600 Mg-200 Mg-300 Mg) 1 tab PO DAILY [facility] Last Admin: 06/17/17 09:51 Dose: 1 tab Enoxaparin Sodium (Lovenox) 30 mg SC DAILY [facility] Last Admin: 06/17/17 09:52 Dose: 30 mg Hydrochlorothiazide (Microzide) 12.5 mg PO DAILY [facility] Last Admin: 06/17/17 09:52 Dose: 12.5 mg Aztreonam 1 gm/ Sodium (Chloride) 100 mls @ 200 mls/hr IVPB Q8H [facility] Last Admin: 06/17/17 18:36 Dose: 200 mls/hr Vancomycin HCl 1,000 mg/ (Sodium Chloride) 200 mls @ 166.6 mls/hr IVPB Q12H [facility] Last Admin: 06/17/17 06:24 Dose: 166.6 mls/hr Losartan Potassium (Cozaar) 100 mg PO DAILY [facility] Last Admin: 06/17/17 09:52 Dose: 100 mg Pantoprazole Sodium (Protonix Ec Tab) 40 mg PO DAILY [facility] Last Admin: 06/17/17 09:52 Dose: 40 mg Trimethoprim/Sulfamethoxazole (Bactrim Ds Tab) 1 tab PO Q12H [facility] Last Admin: 06/17/17 18:39 Dose: 1 tab - Labs Labs: 06/15/17 15:05 06/15/17 15:05
[2017-06-17] MEDS: Benzocaine/Menthol (Cepacol) Lozenge MT PRN (19:41)
[2017-06-18] MEDS: Aztreonam 1 GM in Sodium Chloride 0.9% 100 ML IVPB SCH ×3 (01:40→18:55)
[2017-06-18] MEDS: Tmp-Smz 800 mg-160 mg DS Tab PO SCH ×2 (06:10→18:45)
[2017-06-18] MEDS: Benzocaine/Menthol (Cepacol) Lozenge MT PRN ×3 (06:11→21:33)
--- NOTE | 2017-06-18 08:35 | CP.PCM.PN ---
Subjective - Date & Time of Evaluation Date of Evaluation: 06/18/17 Objective - Vital Signs/Intake and Output Vital Signs (last 24 hours): Temp Pulse Resp BP Pulse Ox 99 F 67 20 113/72 90 L 06/17/17 23:50 06/17/17 23:50 06/17/17 23:50 06/17/17 23:50 06/17/17 23:50 Intake and Output: 06/18/17 06/18/17 06:59 18:59 Intake Total 750 Balance 750 - Medications Medications: Current Medications Aspirin (Ecotrin) 81 mg PO DAILY [facility] Last Admin: 06/17/17 09:52 Dose: 81 mg Benzocaine/Menthol (Cepacol Sore Throat) 1 vikas MT Q4 PRN PRN Reason: Sore Throat Last Admin: 06/18/17 06:11 Dose: 1 vikas Clonidine HCl (Catapres) 0.2 mg PO BID [facility] Last Admin: 06/17/17 18:39 Dose: 0.2 mg Efavirenz/Emtricitabine/Tenofovir (Atripla 600 Mg-200 Mg-300 Mg) 1 tab PO DAILY [facility] Last Admin: 06/17/17 09:51 Dose: 1 tab Enoxaparin Sodium (Lovenox) 30 mg SC DAILY [facility] Last Admin: 06/17/17 09:52 Dose: 30 mg Hydrochlorothiazide (Microzide) 12.5 mg PO DAILY [facility] Last Admin: 06/17/17 09:52 Dose: 12.5 mg Aztreonam 1 gm/ Sodium (Chloride) 100 mls @ 200 mls/hr IVPB Q8H [facility] Last Admin: 06/18/17 01:40 Dose: 200 mls/hr Vancomycin HCl 1,000 mg/ (Sodium Chloride) 200 mls @ 166.6 mls/hr IVPB Q12H [facility] Last Admin: 06/18/17 06:10 Dose: 166.6 mls/hr Losartan Potassium (Cozaar) 100 mg PO DAILY [facility] Last Admin: 06/17/17 09:52 Dose: 100 mg Pantoprazole Sodium (Protonix Ec Tab) 40 mg PO DAILY [facility] Last Admin: 06/17/17 09:52 Dose: 40 mg Trimethoprim/Sulfamethoxazole (Bactrim Ds Tab) 1 tab PO Q12H [facility] Last Admin: 06/18/17 06:10 Dose: 1 tab - Labs Labs: 06/15/17 15:05 06/15/17 15:05
[2017-06-18] MEDS: Enoxaparin 30 mg Syringe SC SCH (09:43)
[2017-06-18] MEDS: Pantoprazole 40 mg EC Tab PO SCH (09:44)
[2017-06-18] MEDS: Efavirenz/Emtricitabine/Teno 1 TAB PO SCH (09:45)
[2017-06-18 10:08] LABS: SQUAMOUS EPITHIAL 3 /hpf (0-5); URINE BILIRUBIN NEGATIVE (NEGATIVE); URINE BLOOD NEGATIVE (NEGATIVE); URINE CLARITY Clear (Clear); URINE COLOR Yellow (YELLOW); URINE GLUCOSE (UA) NORMAL (Normal); URINE LEUKOCYTE ESTERASE NEG Leu/uL (Negative); URINE NITRATE NEGATIVE (NEGATIVE); URINE PROTEIN 1+ mg/dL (NEGATIVE)
--- NOTE | 2017-06-18 10:14 | RAD ---
Chest x-ray single frontal view History: Pneumonia. Comparison: 06/15/2017 Findings: Persistent consolidative changes at both lung bases suggestive for infiltrate and or atelectasis. Elevated right hemidiaphragm. Right hilar prominence. Enlarged ectatic aorta. Mild cardiomegaly. Degenerative changes in the spine. Impression: Worsening bibasilar atelectasis or infiltrate.
--- NOTE | 2017-06-18 11:22 | CP.PCM.PN ---
Subjective - Date & Time of Evaluation Date of Evaluation: 06/18/17 Time of Evaluation: 08:00 - Subjective Subjective: slow progress iv rx in progress dr cruz to re-evall Objective - Vital Signs/Intake and Output Vital Signs (last 24 hours): Temp Pulse Resp BP Pulse Ox 99.0 F 67 20 111/77 93 L 06/18/17 07:02 06/18/17 07:02 06/18/17 07:02 06/18/17 07:02 06/18/17 07:02 Intake and Output: 06/18/17 06/18/17 06:59 18:59 Intake Total 750 Balance 750 - Medications Medications: Current Medications Aspirin (Ecotrin) 81 mg PO DAILY [facility] Last Admin: 06/18/17 09:44 Dose: 81 mg Benzocaine/Menthol (Cepacol Sore Throat) 1 vikas MT Q4 PRN PRN Reason: Sore Throat Last Admin: 06/18/17 09:45 Dose: 1 vikas Clonidine HCl (Catapres) 0.2 mg PO BID [facility] Last Admin: 06/18/17 09:44 Dose: 0.2 mg Efavirenz/Emtricitabine/Tenofovir (Atripla 600 Mg-200 Mg-300 Mg) 1 tab PO DAILY [facility] Last Admin: 06/18/17 09:45 Dose: 1 tab Enoxaparin Sodium (Lovenox) 30 mg SC DAILY [facility] Last Admin: 06/18/17 09:43 Dose: 30 mg Hydrochlorothiazide (Microzide) 12.5 mg PO DAILY [facility] Last Admin: 06/18/17 09:44 Dose: 12.5 mg Aztreonam 1 gm/ Sodium (Chloride) 100 mls @ 200 mls/hr IVPB Q8H [facility] Last Admin: 06/18/17 09:42 Dose: 200 mls/hr Vancomycin HCl 1,000 mg/ (Sodium Chloride) 200 mls @ 166.6 mls/hr IVPB Q12H [facility] Last Admin: 06/18/17 06:10 Dose: 166.6 mls/hr Losartan Potassium (Cozaar) 100 mg PO DAILY [facility] Last Admin: 06/18/17 09:44 Dose: 100 mg Pantoprazole Sodium (Protonix Ec Tab) 40 mg PO DAILY [facility] Last Admin: 06/18/17 09:44 Dose: 40 mg Trimethoprim/Sulfamethoxazole (Bactrim Ds Tab) 1 tab PO Q12H [facility] Last Admin: 06/18/17 06:10 Dose: 1 tab - Labs Labs: 06/15/17 15:05 06/15/17 15:05 - Constitutional Appears: Non-toxic, Cachectic, Chronically Ill - Head Exam Head Exam: NORMOCEPHALIC - ENT Exam ENT Exam: Normal Exam - Neck Exam Neck Exam: Full ROM - Respiratory Exam Respiratory Exam: Decreased Breath Sounds, Prolonged Expiratory Phase, Rales - Cardiovascular Exam Cardiovascular Exam: REGULAR RHYTHM, +S1, +S2 - GI/Abdominal Exam GI & Abdominal Exam: Distended, Soft - Rectal Exam Rectal Exam: Deferred - Exam Exam: NORMAL INSPECTION - Extremities Exam Extremities Exam: absent: Pedal Edema - Back Exam Back Exam: absent: CVA tenderness (L), CVA tenderness (R) - Neurological Exam Neurological Exam: Alert, Awake Assessment and Plan (1) Pneumonia Status: Acute (2) Pneumonia Status: Acute
--- NOTE | 2017-06-18 13:11 | CP.PCM.PN ---
Subjective - Date & Time of Evaluation Date of Evaluation: 06/18/17 Time of Evaluation: 13:09 - Subjective Subjective: COUGH PRESENT. AFEBRILE. PNEUMONIA. AFEBRILE. Objective - Vital Signs/Intake and Output Vital Signs (last 24 hours): Temp Pulse Resp BP Pulse Ox 99.0 F 67 20 111/77 93 L 06/18/17 07:02 06/18/17 07:02 06/18/17 07:02 06/18/17 07:02 06/18/17 07:02 Intake and Output: 06/18/17 06/18/17 06:59 18:59 Intake Total 750 Balance 750 - Medications Medications: Current Medications Aspirin (Ecotrin) 81 mg PO DAILY [facility] Last Admin: 06/18/17 09:44 Dose: 81 mg Benzocaine/Menthol (Cepacol Sore Throat) 1 vikas MT Q4 PRN PRN Reason: Sore Throat Last Admin: 06/18/17 09:45 Dose: 1 vikas Clonidine HCl (Catapres) 0.2 mg PO BID [facility] Last Admin: 06/18/17 09:44 Dose: 0.2 mg Efavirenz/Emtricitabine/Tenofovir (Atripla 600 Mg-200 Mg-300 Mg) 1 tab PO DAILY [facility] Last Admin: 06/18/17 09:45 Dose: 1 tab Enoxaparin Sodium (Lovenox) 30 mg SC DAILY [facility] Last Admin: 06/18/17 09:43 Dose: 30 mg Hydrochlorothiazide (Microzide) 12.5 mg PO DAILY [facility] Last Admin: 06/18/17 09:44 Dose: 12.5 mg Aztreonam 1 gm/ Sodium (Chloride) 100 mls @ 200 mls/hr IVPB Q8H [facility] Last Admin: 06/18/17 09:42 Dose: 200 mls/hr Vancomycin HCl 1,000 mg/ (Sodium Chloride) 200 mls @ 166.6 mls/hr IVPB Q12H [facility] Last Admin: 06/18/17 06:10 Dose: 166.6 mls/hr Losartan Potassium (Cozaar) 100 mg PO DAILY [facility] Last Admin: 06/18/17 09:44 Dose: 100 mg Pantoprazole Sodium (Protonix Ec Tab) 40 mg PO DAILY [facility] Last Admin: 06/18/17 09:44 Dose: 40 mg Trimethoprim/Sulfamethoxazole (Bactrim Ds Tab) 1 tab PO Q12H [facility] Last Admin: 06/18/17 06:10 Dose: 1 tab - Labs Labs: 06/15/17 15:05 06/15/17 15:05 - Constitutional Appears: No Acute Distress, Chronically Ill - Eye Exam Eye Exam: PERRL - ENT Exam ENT Exam: Mucous Membranes Moist - Respiratory Exam Respiratory Exam: Rhonchi, NORMAL BREATHING PATTERN - Cardiovascular Exam Cardiovascular Exam: REGULAR RHYTHM, +S1, +S2 - GI/Abdominal Exam GI & Abdominal Exam: Soft, Normal Bowel Sounds - Extremities Exam Extremities Exam: Full ROM, Normal Capillary Refill, Normal Inspection. absent : Joint Swelling, Pedal Edema - Back Exam Back Exam: NORMAL INSPECTION - Psychiatric Exam Psychiatric exam: Normal Affect, Normal Mood Assessment and Plan - Assessment and Plan (Free Text) Assessment: PNEUMONIA. HIV. Plan: FOR IV ANTIBIOTICS. PAULA BELTRAN.
[2017-06-18 16:52] LABS: VENOUS BLOOD GAS BASE EXCESS -1.9 mmol/L (0.0-2.0); VENOUS BLOOD GAS PCO2 35 mmHg (40-60); VENOUS BLOOD GAS PO2 38 mm/Hg (30-55); VENOUS BLOOD PH 7.41 (7.32-7.43)
--- NOTE | 2017-06-18 17:00 | CP.PCM.PN ---
Subjective - Date & Time of Evaluation Date of Evaluation: 06/18/17 Time of Evaluation: 09:00 - Subjective Subjective: The patient was seen and examined this morning. She states that her dyspnea has improved when she is at rest. She was able to sleep overnight and is now resting comfortably. Her voice has improved greatly. She is still complaining of some right sided chest pain associated with coughing, sputum production, and has some trouble with deep inspiration. She denies fever, chills, sore throat, palpitations, and hemoptysis. Vital signs: Temperature: 99.0 F Pulse: 67 Respiratory rate: 20 Blood pressure: 111/77 mm Hg Pulse oximetry: 93% on 4L O2 nasal canula Physical examination: Cardiovascular: RRR, +s1, +s2, no murmurs/rubs/gallops Pulmonary: mild diffuse wheezing, normal breathing pattern Labs: Microbiology: Influenza negative Strep negative Blood cultures x2 pending Sputum cultures pending Assessment & Plan: Community acquired pneumonia * CXR and CT evidence of bilateral pulmonary infiltrates at lung bases * CXR 06/18: atelectasis vs. infiltrates * PCP pneumonia can effectively be ruled out as the patient has mildly elevated LDH, lack of severe hypoxia, and lack of CXR/CT evidence of PCP pneumonia. * Continue IV antibiotics * F/u blood cultures * F/u sputum cultures Objective - Vital Signs/Intake and Output Vital Signs (last 24 hours): Temp Pulse Resp BP Pulse Ox 97.7 F 71 20 126/83 93 L 06/18/17 16:16 06/18/17 16:16 06/18/17 16:16 06/18/17 16:16 06/18/17 07:02 Intake and Output: 06/18/17 06/18/17 06:59 18:59 Intake Total 750 Balance 750 - Medications Medications: Current Medications Aspirin (Ecotrin) 81 mg PO DAILY [facility] Last Admin: 06/18/17 09:44 Dose: 81 mg Benzocaine/Menthol (Cepacol Sore Throat) 1 vikas MT Q4 PRN PRN Reason: Sore Throat Last Admin: 06/18/17 09:45 Dose: 1 vikas Clonidine HCl (Catapres) 0.2 mg PO BID [facility] Last Admin: 06/18/17 09:44 Dose: 0.2 mg Efavirenz/Emtricitabine/Tenofovir (Atripla 600 Mg-200 Mg-300 Mg) 1 tab PO DAILY [facility] Last Admin: 06/18/17 09:45 Dose: 1 tab Enoxaparin Sodium (Lovenox) 30 mg SC DAILY [facility] Last Admin: 06/18/17 09:43 Dose: 30 mg Hydrochlorothiazide (Microzide) 12.5 mg PO DAILY [facility] Last Admin: 06/18/17 09:44 Dose: 12.5 mg Aztreonam 1 gm/ Sodium (Chloride) 100 mls @ 200 mls/hr IVPB Q8H [facility] Last Admin: 06/18/17 09:42 Dose: 200 mls/hr Vancomycin HCl 1,000 mg/ (Sodium Chloride) 200 mls @ 166.6 mls/hr IVPB Q12H [facility] Last Admin: 06/18/17 06:10 Dose: 166.6 mls/hr Losartan Potassium (Cozaar) 100 mg PO DAILY [facility] Last Admin: 06/18/17 09:44 Dose: 100 mg Pantoprazole Sodium (Protonix Ec Tab) 40 mg PO DAILY [facility] Last Admin: 06/18/17 09:44 Dose: 40 mg Trimethoprim/Sulfamethoxazole (Bactrim Ds Tab) 1 tab PO Q12H [facility] Last Admin: 06/18/17 06:10 Dose: 1 tab - Labs Labs: 06/15/17 15:05 06/15/17 15:05
[2017-06-19] MEDS: Aztreonam 1 GM in Sodium Chloride 0.9% 100 ML IVPB SCH ×3 (02:54→17:45)
[2017-06-19 06:40] LABS: % CD4 (T HELPER CELL) 25 Percent (30-61); % CD8 (SUPPRESSOR T CELL) 55 Percent (12-42); ABSOLUTE CD4 CELLS 489 Cells/mcL (490-1740); ABSOLUTE CD8 CELLS 1056 Cells/mcL (180-1170); ABSOLUTE LYMPHOCYTES 1935 Cells/mcL (850-3900); HELPER/SUPPRESSOR RATIO 0.46 Ratio (0.86-5.00)
[2017-06-19] MEDS: Tmp-Smz 800 mg-160 mg DS Tab PO SCH ×2 (06:45→19:07)
[2017-06-19] MEDS: Enoxaparin 30 mg Syringe SC SCH (09:16)
[2017-06-19] MEDS: Pantoprazole 40 mg EC Tab PO SCH (09:17)
[2017-06-19] MEDS: Efavirenz/Emtricitabine/Teno 1 TAB PO SCH (09:18)
--- NOTE | 2017-06-19 12:57 | CP.PCM.PN ---
Subjective - Date & Time of Evaluation Date of Evaluation: 06/19/17 Time of Evaluation: 12:54 - Subjective Subjective: PT HAS MOREJON. LIMITED AMBULATION. COUGH WITH GREEN SPUTUM. AFEBRILE. LOW PULSE OX. ON O2. Objective - Vital Signs/Intake and Output Vital Signs (last 24 hours): Temp Pulse Resp BP Pulse Ox 98.2 F 65 20 135/89 93 L 06/19/17 08:45 06/19/17 08:45 06/19/17 08:45 06/19/17 08:45 06/19/17 08:45 Intake and Output: 06/19/17 06/19/17 06:59 18:59 Intake Total 800 Balance 800 - Medications Medications: Current Medications Aspirin (Ecotrin) 81 mg PO DAILY [facility] Last Admin: 06/19/17 09:17 Dose: 81 mg Benzocaine/Menthol (Cepacol Sore Throat) 1 vikas MT Q4 PRN PRN Reason: Sore Throat Last Admin: 06/18/17 21:33 Dose: 1 vikas Clonidine HCl (Catapres) 0.2 mg PO BID [facility] Last Admin: 06/19/17 09:17 Dose: 0.2 mg Efavirenz/Emtricitabine/Tenofovir (Atripla 600 Mg-200 Mg-300 Mg) 1 tab PO DAILY [facility] Last Admin: 06/19/17 09:18 Dose: 1 tab Enoxaparin Sodium (Lovenox) 30 mg SC DAILY [facility] Last Admin: 06/19/17 09:16 Dose: 30 mg Hydrochlorothiazide (Microzide) 12.5 mg PO DAILY [facility] Last Admin: 06/19/17 09:17 Dose: 12.5 mg Aztreonam 1 gm/ Sodium (Chloride) 100 mls @ 200 mls/hr IVPB Q8H [facility] Last Admin: 06/19/17 09:15 Dose: 200 mls/hr Vancomycin HCl 1,000 mg/ (Sodium Chloride) 200 mls @ 166.6 mls/hr IVPB Q12H [facility] Last Admin: 06/19/17 06:47 Dose: 166.6 mls/hr Losartan Potassium (Cozaar) 100 mg PO DAILY [facility] Last Admin: 06/19/17 09:17 Dose: 100 mg Pantoprazole Sodium (Protonix Ec Tab) 40 mg PO DAILY [facility] Last Admin: 06/19/17 09:17 Dose: 40 mg Trimethoprim/Sulfamethoxazole (Bactrim Ds Tab) 1 tab PO Q12H [facility] Last Admin: 06/19/17 06:45 Dose: 1 tab - Labs Labs: 06/15/17 15:05 06/15/17 15:05 - Constitutional Appears: No Acute Distress, Chronically Ill - Eye Exam Eye Exam: PERRL - ENT Exam ENT Exam: Mucous Membranes Moist - Respiratory Exam Respiratory Exam: Clear to Ausculation Bilateral, NORMAL BREATHING PATTERN - Cardiovascular Exam Cardiovascular Exam: REGULAR RHYTHM, +S1, +S2 - GI/Abdominal Exam GI & Abdominal Exam: Soft, Normal Bowel Sounds. absent: Tenderness - Extremities Exam Extremities Exam: Full ROM, Normal Capillary Refill, Normal Inspection. absent : Joint Swelling, Pedal Edema - Back Exam Back Exam: NORMAL INSPECTION - Neurological Exam Neurological Exam: Alert, Awake, CN II-XII Intact, Normal Gait, Oriented x3 Assessment and Plan - Assessment and Plan (Free Text) Assessment: PNEUMONIA. HIV. Plan: FOR IV ABTS. RESP TREATMENT.
--- NOTE | 2017-06-19 15:29 | CP.PCM.PN ---
Subjective - Date & Time of Evaluation Date of Evaluation: 06/19/17 Time of Evaluation: 11:15 - Subjective Subjective: The patient was seen and examined this morning. She was able to sleep overnight and is now resting comfortably. She states that her dyspnea has improved. She is still complaining of right sided chest pain. She admits to fatigue, cough, white sputum production, trouble with deep inspiration, and shortness of breath on exertion. She denies fever, chills, weakness, sore throat, palpitations, and hemoptysis. Vital signs: Temperature: 99.0 F Pulse: 67 bpm Respiratory rate: 20 brpm Blood pressure: 135/89 mm Hg Pulse oximetry: 93% on 4L O2 nasal canula Physical examination: Cardiovascular: RRR, +s1, +s2, no murmurs/rubs/gallops Pulmonary: mild diffuse wheezing, normal breathing pattern Labs: 06/15/2017 Microbiology: Influenza negative Strep negative Blood cultures negative x2 Sputum cultures negative Assessment & Plan: Community acquired pneumonia * CXR and CT evidence of bilateral pulmonary infiltrates at lung bases * CXR 06/18: atelectasis vs. infiltrates * PCP pneumonia can effectively be ruled out as the patient has mildly elevated LDH, lack of severe hypoxia, and lack of CXR/CT evidence of PCP pneumonia. * Blood cultures negative x2 * Sputum cultures negative * Continue IV antibiotics Objective - Vital Signs/Intake and Output Vital Signs (last 24 hours): Temp Pulse Resp BP Pulse Ox 98.2 F 65 20 135/89 93 L 06/19/17 08:45 06/19/17 08:45 06/19/17 08:45 06/19/17 08:45 06/19/17 08:45 Intake and Output: 06/19/17 06/19/17 06:59 18:59 Intake Total 800 Balance 800 - Medications Medications: Current Medications Aspirin (Ecotrin) [address] [facility] Last Admin: 06/19/17 09:17 Dose: 81 mg Benzocaine/Menthol (Cepacol Sore Throat) 1 vikas MT Q4 PRN PRN Reason: Sore Throat Last Admin: 06/18/17 21:33 Dose: 1 vikas Clonidine HCl (Catapres) 0.[address] [facility] Last Admin: 06/19/17 09:17 Dose: 0.2 mg Efavirenz/Emtricitabine/Tenofovir (Atripla 600 Mg-200 Mg-300 Mg) [address] [facility] Last Admin: 06/19/17 09:18 Dose: 1 tab Enoxaparin Sodium (Lovenox) [address] [facility] Last Admin: 06/19/17 09:16 Dose: 30 mg Hydrochlorothiazide (Microzide) 12.[address] [facility] Last Admin: 06/19/17 09:17 Dose: 12.5 mg Aztreonam 1 gm/ Sodium (Chloride) 100 mls @ 200 mls/hr IVPB Q8H [facility] Last Admin: 06/19/17 09:15 Dose: 200 mls/hr Vancomycin HCl 1,000 mg/ (Sodium Chloride) 200 mls @ 166.6 mls/hr IVPB Q12H [facility] Last Admin: 06/19/17 06:47 Dose: 166.6 mls/hr Losartan Potassium (Cozaar) [address] [facility] Last Admin: 06/19/17 09:17 Dose: 100 mg Pantoprazole Sodium (Protonix Ec Tab) [address] [facility] Last Admin: 06/19/17 09:17 Dose: 40 mg Trimethoprim/Sulfamethoxazole (Bactrim Ds Tab) [address] [facility] Last Admin: 06/19/17 06:45 Dose: 1 tab - Labs Labs: 06/15/17 15:05 06/15/17 15:05
--- NOTE | 2017-06-19 16:47 | CP.PCM.PN ---
Subjective - Date & Time of Evaluation Date of Evaluation: 06/19/17 Time of Evaluation: 07:00 - Subjective Subjective: restarted HAART rx afebrile NAD Objective - Vital Signs/Intake and Output Vital Signs (last 24 hours): Temp Pulse Resp BP Pulse Ox 98.3 F 73 18 133/82 96 06/19/17 15:00 06/19/17 15:00 06/19/17 15:00 06/19/17 15:00 06/19/17 15:00 Intake and Output: 06/19/17 06/19/17 06:59 18:59 Intake Total 800 Balance 800 - Medications Medications: Current Medications Aspirin (Ecotrin) 81 mg PO DAILY [facility] Last Admin: 06/19/17 09:17 Dose: 81 mg Benzocaine/Menthol (Cepacol Sore Throat) 1 vikas MT Q4 PRN PRN Reason: Sore Throat Last Admin: 06/18/17 21:33 Dose: 1 vikas Clonidine HCl (Catapres) 0.2 mg PO BID [facility] Last Admin: 06/19/17 09:17 Dose: 0.2 mg Efavirenz/Emtricitabine/Tenofovir (Atripla 600 Mg-200 Mg-300 Mg) 1 tab PO DAILY [facility] Last Admin: 06/19/17 09:18 Dose: 1 tab Enoxaparin Sodium (Lovenox) 30 mg SC DAILY [facility] Last Admin: 06/19/17 09:16 Dose: 30 mg Hydrochlorothiazide (Microzide) 12.5 mg PO DAILY [facility] Last Admin: 06/19/17 09:17 Dose: 12.5 mg Aztreonam 1 gm/ Sodium (Chloride) 100 mls @ 200 mls/hr IVPB Q8H [facility] Last Admin: 06/19/17 09:15 Dose: 200 mls/hr Vancomycin HCl 1,000 mg/ (Sodium Chloride) 200 mls @ 166.6 mls/hr IVPB Q12H [facility] Last Admin: 06/19/17 06:47 Dose: 166.6 mls/hr Losartan Potassium (Cozaar) 100 mg PO DAILY [facility] Last Admin: 06/19/17 09:17 Dose: 100 mg Pantoprazole Sodium (Protonix Ec Tab) 40 mg PO DAILY [facility] Last Admin: 06/19/17 09:17 Dose: 40 mg Trimethoprim/Sulfamethoxazole (Bactrim Ds Tab) 1 tab PO Q12H [facility] Last Admin: 06/19/17 06:45 Dose: 1 tab - Labs Labs: 06/15/17 15:05 06/15/17 15:05 - Constitutional Appears: Non-toxic, Chronically Ill - Head Exam Head Exam: NORMOCEPHALIC - Eye Exam Eye Exam: PERRL. absent: Scleral icterus - ENT Exam ENT Exam: Mucous Membranes Dry - Neck Exam Neck Exam: absent: Lymphadenopathy - Respiratory Exam Respiratory Exam: Decreased Breath Sounds, Prolonged Expiratory Phase, Rhonchi - Cardiovascular Exam Cardiovascular Exam: REGULAR RHYTHM, +S1, +S2 - GI/Abdominal Exam GI & Abdominal Exam: Distended, Soft. absent: Tenderness - Rectal Exam Rectal Exam: Deferred - Exam Exam: NORMAL INSPECTION - Extremities Exam Extremities Exam: absent: Pedal Edema - Back Exam Back Exam: absent: CVA tenderness (L), CVA tenderness (R) Assessment and Plan (1) Pneumonia Status: Acute (2) Pneumonia Status: Acute
[2017-06-20 00:33] VITALS: RESP 20
[2017-06-20] MEDS: Aztreonam 1 GM in Sodium Chloride 0.9% 100 ML IVPB SCH ×3 (03:12→17:50)
[2017-06-20] MEDS: Tmp-Smz 800 mg-160 mg DS Tab PO SCH ×2 (06:42→18:34)
[2017-06-20 08:22] LABS: BASO # 0.1 K/uL (0.0-0.2); BASO % 0.6 % (0.0-2.0); EOS # 0.4 K/uL (0.0-0.7); EOS % 4.6 % (0.0-4.0); HEMOGLOBIN 12.2 g/dL (11.0-16.0); LYMPH # 1.9 K/uL (1.0-4.3); LYMPH % 21.2 % (20.0-40.0); MEAN CELL VOLUME 90.8 fL (81.0-99.0); MEAN CORPUSCULAR HEMOGLOBIN 30.5 pg (27.0-31.0); MEAN CORPUSCULAR HGB CONC 33.6 g/dL (33.0-37.0); MEAN PLATELET VOLUME 7.6 fL (7.2-11.7); MONO # 0.8 K/uL (0.0-0.8); MONO % 9.1 % (0.0-10.0); NEUT # 5.7 K/uL (1.8-7.0); NEUT % 64.5 % (50.0-75.0); NRBC % 0.1 % (0.0-2.0); RED CELL DISTRIBUTION WIDTH 13.5 % (11.5-14.5); WHITE BLOOD COUNT 8.9 K/uL (4.8-10.8)
[2017-06-20 08:55] LABS: ALB/GLOB RATIO 0.9 (1.0-2.1); ALT/SGPT 21 U/L (9-52); AST/SGOT 33 U/L (14-36); BLOOD UREA NITROGEN 8 mg/dL (7-17); CALCIUM 8.6 mg/dl (8.6-10.4); GFR AFRICAN-AMERICAN > 60; GFR NON-AFRICAN AMERICAN > 60
[2017-06-20] MEDS: Efavirenz/Emtricitabine/Teno 1 TAB PO SCH (10:47)
[2017-06-20] MEDS: Benzocaine/Menthol (Cepacol) Lozenge MT PRN (10:47)
[2017-06-20] MEDS: Pantoprazole 40 mg EC Tab PO SCH (10:47)
[2017-06-20] MEDS: Enoxaparin 30 mg Syringe SC SCH (10:53)
--- NOTE | 2017-06-20 12:28 | CP.PCM.PN ---
Subjective - Date & Time of Evaluation Date of Evaluation: 06/20/17 Time of Evaluation: 12:25 - Subjective Subjective: PT IMPROVING. COUGH MILD. Objective - Vital Signs/Intake and Output Vital Signs (last 24 hours): Temp Pulse Resp BP Pulse Ox 97.2 F L 73 20 130/80 95 06/20/17 08:00 06/20/17 08:00 06/20/17 08:00 06/20/17 08:00 06/20/17 08:00 Intake and Output: 06/20/17 06/20/17 06:59 18:59 Intake Total 200 Output Total 250 Balance 200 -250 - Medications Medications: Current Medications Aspirin (Ecotrin) 81 mg PO DAILY [facility] Last Admin: 06/20/17 10:53 Dose: 81 mg Benzocaine/Menthol (Cepacol Sore Throat) 1 vikas MT Q4 PRN PRN Reason: Sore Throat Last Admin: 06/20/17 10:47 Dose: 1 vikas Clonidine HCl (Catapres) 0.2 mg PO BID [facility] Last Admin: 06/20/17 10:47 Dose: 0.2 mg Efavirenz/Emtricitabine/Tenofovir (Atripla 600 Mg-200 Mg-300 Mg) 1 tab PO DAILY [facility] Last Admin: 06/20/17 10:47 Dose: 1 tab Enoxaparin Sodium (Lovenox) 30 mg SC DAILY [facility] Last Admin: 06/20/17 10:53 Dose: 30 mg Hydrochlorothiazide (Microzide) 12.5 mg PO DAILY [facility] Last Admin: 06/20/17 10:53 Dose: 12.5 mg Aztreonam 1 gm/ Sodium (Chloride) 100 mls @ 200 mls/hr IVPB Q8H [facility] Last Admin: 06/20/17 10:46 Dose: 200 mls/hr Vancomycin HCl 1,000 mg/ (Sodium Chloride) 200 mls @ 166.6 mls/hr IVPB Q12H [facility] Last Admin: 06/19/17 19:07 Dose: 166.6 mls/hr Losartan Potassium (Cozaar) 100 mg PO DAILY [facility] Last Admin: 06/20/17 10:47 Dose: 100 mg Pantoprazole Sodium (Protonix Ec Tab) 40 mg PO DAILY [facility] Last Admin: 06/20/17 10:47 Dose: 40 mg Trimethoprim/Sulfamethoxazole (Bactrim Ds Tab) 1 tab PO Q12H [facility] Last Admin: 06/20/17 06:42 Dose: 1 tab - Labs Labs: 06/20/17 08:17 06/20/17 08:17 - Constitutional Appears: No Acute Distress, Chronically Ill - Eye Exam Eye Exam: PERRL - ENT Exam ENT Exam: Normal Exam - Neck Exam Neck Exam: Full ROM, Normal Inspection. absent: Lymphadenopathy - Respiratory Exam Respiratory Exam: Clear to Ausculation Bilateral, NORMAL BREATHING PATTERN - Cardiovascular Exam Cardiovascular Exam: REGULAR RHYTHM, +S1, +S2. absent: Murmur - GI/Abdominal Exam GI & Abdominal Exam: Soft, Normal Bowel Sounds. absent: Tenderness - Exam Exam: Circumcision, NORMAL INSPECTION External exam: NORMAL EXTERNAL EXAM Speculum exam: NORMAL SPECULUM EXAM Bimanual exam: NORMAL BIMANUAL EXAM - Extremities Exam Extremities Exam: Full ROM, Normal Capillary Refill, Normal Inspection. absent : Joint Swelling, Pedal Edema - Back Exam Back Exam: NORMAL INSPECTION - Psychiatric Exam Psychiatric exam: Normal Affect, Normal Mood Assessment and Plan - Assessment and Plan (Free Text) Assessment: PNEUMONIA. HIV. Plan: SPUTUM C/S AWAITING. CT PRESENT TREATMENT PER DR. MCELROY.
[2017-06-20] MEDS ORDERED: Potassium Chloride 20 mEq ER Tab PO ONE (16:30)
--- NOTE | 2017-06-20 18:35 | CP.PCM.PN ---
Subjective - Date & Time of Evaluation Date of Evaluation: 06/20/17 Time of Evaluation: 15:30 - Subjective Subjective: patient seen and examined Breathing and cough much improved Dyspnea on exertion Afebrile No chest pain Objective - Vital Signs/Intake and Output Vital Signs (last 24 hours): Temp Pulse Resp BP Pulse Ox 97.5 F L 84 20 130/87 95 06/20/17 16:22 06/20/17 16:22 06/20/17 16:22 06/20/17 16:22 06/20/17 16:22 Intake and Output: 06/20/17 06/20/17 06:59 18:59 Intake Total 200 Output Total 250 Balance 200 -250 - Medications Medications: Current Medications Aspirin (Ecotrin) 81 mg PO DAILY [facility] Last Admin: 06/20/17 10:53 Dose: 81 mg Benzocaine/Menthol (Cepacol Sore Throat) 1 vikas MT Q4 PRN PRN Reason: Sore Throat Last Admin: 06/20/17 10:47 Dose: 1 vikas Clonidine HCl (Catapres) 0.2 mg PO BID [facility] [place] Last Admin: 06/20/17 10:47 Dose: 0.2 mg Efavirenz/Emtricitabine/Tenofovir (Atripla 600 Mg-200 Mg-300 Mg) 1 tab PO DAILY [facility] [place] Last Admin: 06/20/17 10:47 Dose: 1 tab Enoxaparin Sodium (Lovenox) 30 mg SC DAILY [facility] [place] Last Admin: 06/20/17 10:53 Dose: 30 mg Hydrochlorothiazide (Microzide) 12.5 mg PO DAILY [facility] [place] Last Admin: 06/20/17 10:53 Dose: 12.5 mg Aztreonam 1 gm/ Sodium (Chloride) 100 mls @ 200 mls/hr IVPB Q8H [facility] [place] Last Admin: 06/20/17 10:46 Dose: 200 mls/hr Vancomycin HCl 1,000 mg/ (Sodium Chloride) 200 mls @ 166.6 mls/hr IVPB Q12H [facility] [place] Last Admin: 06/19/17 19:07 Dose: 166.6 mls/hr Losartan Potassium (Cozaar) 100 mg PO DAILY [facility] [place] Last Admin: 06/20/17 10:47 Dose: 100 mg Pantoprazole Sodium (Protonix Ec Tab) 40 mg PO DAILY [facility] [place] Last Admin: 06/20/17 10:47 Dose: 40 mg Trimethoprim/Sulfamethoxazole (Bactrim Ds Tab) 1 tab PO Q12H [facility] Last Admin: 06/20/17 06:42 Dose: 1 tab - Labs Labs: 06/20/17 08:17 06/20/17 08:17 - Head Exam Head Exam: ATRAUMATIC, NORMOCEPHALIC - Eye Exam Eye Exam: Normal appearance - ENT Exam ENT Exam: Mucous Membranes Moist - Neck Exam Neck Exam: Normal Inspection - Respiratory Exam Respiratory Exam: Rales - Cardiovascular Exam Cardiovascular Exam: REGULAR RHYTHM - GI/Abdominal Exam GI & Abdominal Exam: Soft Assessment and Plan (1) Pneumonia Assessment & Plan: continue antibiotics as per infectious disease Continue nebulizer treatment Followup chest x-ray Oxygen saturation on room air and ambulation Status: Acute
--- NOTE | 2017-06-20 18:44 | CP.PCM.PN ---
Subjective - Date & Time of Evaluation Date of Evaluation: 06/20/17 Time of Evaluation: 07:00 - Subjective Subjective: still coughing + SOB with exertion needs O2 supplement not cleared for discharge - on IV antibiotics Objective - Vital Signs/Intake and Output Vital Signs (last 24 hours): Temp Pulse Resp BP Pulse Ox 97.5 F L 80 20 161/90 H 95 06/20/17 16:22 06/20/17 18:39 06/20/17 16:22 06/20/17 18:39 06/20/17 16:22 Intake and Output: 06/20/17 06/20/17 06:59 18:59 Intake Total 200 Output Total 250 Balance 200 -250 - Medications Medications: Current Medications Aspirin (Ecotrin) 81 mg PO DAILY [facility] Last Admin: 06/20/17 10:53 Dose: 81 mg Benzocaine/Menthol (Cepacol Sore Throat) 1 vikas MT Q4 PRN PRN Reason: Sore Throat Last Admin: 06/20/17 10:47 Dose: 1 vikas Clonidine HCl (Catapres) 0.2 mg PO BID [facility] Last Admin: 06/20/17 18:34 Dose: 0.2 mg Efavirenz/Emtricitabine/Tenofovir (Atripla 600 Mg-200 Mg-300 Mg) 1 tab PO DAILY [facility] Last Admin: 06/20/17 10:47 Dose: 1 tab Enoxaparin Sodium (Lovenox) 30 mg SC DAILY [facility] Last Admin: 06/20/17 10:53 Dose: 30 mg Hydrochlorothiazide (Microzide) 12.5 mg PO DAILY [facility] Last Admin: 06/20/17 10:53 Dose: 12.5 mg Aztreonam 1 gm/ Sodium (Chloride) 100 mls @ 200 mls/hr IVPB Q8H [facility] Last Admin: 06/20/17 17:50 Dose: 200 mls/hr Vancomycin HCl 1,000 mg/ (Sodium Chloride) 200 mls @ 166.6 mls/hr IVPB Q12H [facility] Last Admin: 06/20/17 18:37 Dose: 166.6 mls/hr Losartan Potassium (Cozaar) 100 mg PO DAILY [facility] Last Admin: 06/20/17 10:47 Dose: 100 mg Pantoprazole Sodium (Protonix Ec Tab) 40 mg PO DAILY [facility] Last Admin: 06/20/17 10:47 Dose: 40 mg Trimethoprim/Sulfamethoxazole (Bactrim Ds Tab) 1 tab PO Q12H [facility] Last Admin: 06/20/17 18:34 Dose: 1 tab - Labs Labs: 06/20/17 08:17 06/20/17 08:17 - Constitutional Appears: Non-toxic, Chronically Ill - Head Exam Head Exam: NORMOCEPHALIC - Eye Exam Eye Exam: PERRL. absent: Scleral icterus - ENT Exam ENT Exam: Mucous Membranes Dry - Respiratory Exam Respiratory Exam: Decreased Breath Sounds, Prolonged Expiratory Phase, Rales, Rhonchi - Cardiovascular Exam Cardiovascular Exam: REGULAR RHYTHM, +S1, +S2 - GI/Abdominal Exam GI & Abdominal Exam: Distended, Soft - Rectal Exam Rectal Exam: Deferred - Exam Exam: NORMAL INSPECTION - Extremities Exam Extremities Exam: absent: Pedal Edema - Back Exam Back Exam: absent: CVA tenderness (L), CVA tenderness (R) - Neurological Exam Neurological Exam: Alert, Awake, Oriented x3 - Psychiatric Exam Psychiatric exam: Depressed - Skin Skin Exam: Dry Assessment and Plan (1) Pneumonia Status: Acute (2) Pneumonia Status: Acute - Assessment and Plan (Free Text) Plan: cont iv antibiotics needs supplemental O 2 consider LUPE
[2017-06-21] MEDS: Aztreonam 1 GM in Sodium Chloride 0.9% 100 ML IVPB SCH ×3 (01:35→17:14)
[2017-06-21] MEDS: Tmp-Smz 800 mg-160 mg DS Tab PO SCH ×2 (05:43→17:14)
--- NOTE | 2017-06-21 09:56 | RAD ---
HISTORY: COMPARISON: 06/18/2017 TECHNIQUE: Chest PA and lateral FINDINGS: LINES AND TUBES: None. LUNG AND PLEURA: There is interval improved aeration in the right lower lobe with residual atelectasis/pneumonia. There subsegmental atelectasis in the left lower lobe. HEART AND MEDIASTINUM: The heart is not enlarged. The hilar and mediastinal contours are within normal limits. SKELETAL STRUCTURES: The bony structures are within normal limits for the patient's age. VISUALIZED UPPER ABDOMEN: Normal. OTHER FINDINGS: None. IMPRESSION: Interval significant improvement in right lower lobe pneumonia with residual atelectasis/ pneumonia.
[2017-06-21] MEDS: Efavirenz/Emtricitabine/Teno 1 TAB PO SCH (10:24)
[2017-06-21] MEDS: Enoxaparin 30 mg Syringe SC SCH (10:25)
[2017-06-21] MEDS: Pantoprazole 40 mg EC Tab PO SCH (10:25)
--- NOTE | 2017-06-21 12:00 | CP.PCM.PN ---
Subjective - Date & Time of Evaluation Date of Evaluation: 06/21/17 Time of Evaluation: 11:57 - Subjective Subjective: PT BECOMES SOB AT TIME AND PULSE OX DROPS TO 89. COUGH PRESENT. Objective - Vital Signs/Intake and Output Vital Signs (last 24 hours): Temp Pulse Resp BP Pulse Ox 97.8 F 70 20 149/96 H 92 L 06/21/17 08:14 06/21/17 08:14 06/21/17 08:14 06/21/17 08:14 06/21/17 08:14 - Medications Medications: Current Medications Aspirin (Ecotrin) 81 mg PO DAILY [facility] Last Admin: 06/21/17 10:24 Dose: 81 mg Benzocaine/Menthol (Cepacol Sore Throat) 1 vikas MT Q4 PRN PRN Reason: Sore Throat Last Admin: 06/20/17 10:47 Dose: 1 vikas Clonidine HCl (Catapres) 0.2 mg PO BID [facility] Last Admin: 06/21/17 10:24 Dose: 0.2 mg Efavirenz/Emtricitabine/Tenofovir (Atripla 600 Mg-200 Mg-300 Mg) 1 tab PO DAILY [facility] Last Admin: 06/21/17 10:24 Dose: 1 tab Enoxaparin Sodium (Lovenox) 30 mg SC DAILY [facility] Last Admin: 06/21/17 10:25 Dose: Not Given Hydrochlorothiazide (Microzide) 12.5 mg PO DAILY [facility] Last Admin: 06/21/17 10:24 Dose: 12.5 mg Aztreonam 1 gm/ Sodium (Chloride) 100 mls @ 200 mls/hr IVPB Q8H [facility] Last Admin: 06/21/17 10:24 Dose: 200 mls/hr Vancomycin HCl 1,000 mg/ (Sodium Chloride) 200 mls @ 166.6 mls/hr IVPB Q12H [facility] Last Admin: 06/21/17 05:43 Dose: 166.6 mls/hr Losartan Potassium (Cozaar) 100 mg PO DAILY [facility] Last Admin: 06/21/17 10:24 Dose: 100 mg Pantoprazole Sodium (Protonix Ec Tab) 40 mg PO DAILY [facility] Last Admin: 06/21/17 10:25 Dose: 40 mg Trimethoprim/Sulfamethoxazole (Bactrim Ds Tab) 1 tab PO Q12H [facility] Last Admin: 06/21/17 05:43 Dose: 1 tab - Labs Labs: 06/20/17 08:17 06/20/17 08:17 - Constitutional Appears: Chronically Ill - Eye Exam Eye Exam: PERRL - ENT Exam ENT Exam: Mucous Membranes Moist - Respiratory Exam Respiratory Exam: Clear to Ausculation Bilateral, NORMAL BREATHING PATTERN - Cardiovascular Exam Cardiovascular Exam: REGULAR RHYTHM, +S1, +S2 - GI/Abdominal Exam GI & Abdominal Exam: Soft, Normal Bowel Sounds - Extremities Exam Extremities Exam: Full ROM, Normal Capillary Refill, Normal Inspection. absent : Joint Swelling, Pedal Edema - Back Exam Back Exam: NORMAL INSPECTION - Neurological Exam Neurological Exam: Alert, Awake, CN II-XII Intact, Normal Gait, Oriented x3 Assessment and Plan - Assessment and Plan (Free Text) Assessment: PNEUMONIA. HIV. CHEST X RAY IMPROVING. Plan: WILL DISCUSS WITH DR. MCELROY. CT IV ANTIBIOTICS.
--- NOTE | 2017-06-21 12:44 | CP.PCM.PN ---
Subjective - Date & Time of Evaluation Date of Evaluation: 06/21/17 Time of Evaluation: 09:15 - Subjective Subjective: patient seen and examined Breathing and cough much improved Afebrile No chest pain Objective - Vital Signs/Intake and Output Vital Signs (last 24 hours): Temp Pulse Resp BP Pulse Ox 97.8 F 70 20 149/96 H 92 L 06/21/17 08:14 06/21/17 08:14 06/21/17 08:14 06/21/17 08:14 06/21/17 08:14 - Medications Medications: Current Medications Aspirin (Ecotrin) 81 mg PO DAILY [facility] Last Admin: 06/21/17 10:24 Dose: 81 mg Benzocaine/Menthol (Cepacol Sore Throat) 1 vkias MT Q4 PRN PRN Reason: Sore Throat Last Admin: 06/20/17 10:47 Dose: 1 vikas Clonidine HCl (Catapres) 0.2 mg PO BID [facility] Last Admin: 06/21/17 10:24 Dose: 0.2 mg Efavirenz/Emtricitabine/Tenofovir (Atripla 600 Mg-200 Mg-300 Mg) 1 tab PO DAILY [facility] Last Admin: 06/21/17 10:24 Dose: 1 tab Enoxaparin Sodium (Lovenox) 30 mg SC DAILY [facility] Last Admin: 06/21/17 10:25 Dose: Not Given Hydrochlorothiazide (Microzide) 12.5 mg PO DAILY [facility] Last Admin: 06/21/17 10:24 Dose: 12.5 mg Aztreonam 1 gm/ Sodium (Chloride) 100 mls @ 200 mls/hr IVPB Q8H [facility] Last Admin: 06/21/17 10:24 Dose: 200 mls/hr Vancomycin HCl 1,000 mg/ (Sodium Chloride) 200 mls @ 166.6 mls/hr IVPB Q12H [facility] Last Admin: 06/21/17 05:43 Dose: 166.6 mls/hr Losartan Potassium (Cozaar) 100 mg PO DAILY [facility] Last Admin: 06/21/17 10:24 Dose: 100 mg Pantoprazole Sodium (Protonix Ec Tab) 40 mg PO DAILY [facility] Last Admin: 06/21/17 10:25 Dose: 40 mg Trimethoprim/Sulfamethoxazole (Bactrim Ds Tab) 1 tab PO Q12H [facility] Last Admin: 06/21/17 05:43 Dose: 1 tab - Labs Labs: 06/20/17 08:17 06/20/17 08:17 - Head Exam Head Exam: ATRAUMATIC, NORMOCEPHALIC - Eye Exam Eye Exam: Normal appearance - ENT Exam ENT Exam: Mucous Membranes Moist - Neck Exam Neck Exam: Normal Inspection - Respiratory Exam Respiratory Exam: Clear to Ausculation Bilateral Assessment and Plan (1) Pneumonia Assessment & Plan: continue antibiotics Check oxygen saturation on room air and exertion Followup chest x-ray Status: Acute
--- NOTE | 2017-06-21 14:29 | CP.PCM.PN ---
Subjective - Date & Time of Evaluation Date of Evaluation: 06/21/17 Time of Evaluation: 09:00 - Subjective Subjective: AFEB LESS SOB pneumonia improving Objective - Vital Signs/Intake and Output Vital Signs (last 24 hours): Temp Pulse Resp BP Pulse Ox 97.8 F 80 20 149/96 H 91 L 06/21/17 08:14 06/21/17 13:40 06/21/17 08:14 06/21/17 08:14 06/21/17 13:40 - Medications Medications: Current Medications Aspirin (Ecotrin) 81 mg PO DAILY [facility] Last Admin: 06/21/17 10:24 Dose: 81 mg Benzocaine/Menthol (Cepacol Sore Throat) 1 vikas MT Q4 PRN PRN Reason: Sore Throat Last Admin: 06/20/17 10:47 Dose: 1 vikas Clonidine HCl (Catapres) 0.2 mg PO BID [facility] Last Admin: 06/21/17 10:24 Dose: 0.2 mg Efavirenz/Emtricitabine/Tenofovir (Atripla 600 Mg-200 Mg-300 Mg) 1 tab PO DAILY [facility] Last Admin: 06/21/17 10:24 Dose: 1 tab Enoxaparin Sodium (Lovenox) 30 mg SC DAILY [facility] Last Admin: 06/21/17 10:25 Dose: Not Given Hydrochlorothiazide (Microzide) 12.5 mg PO DAILY [facility] Last Admin: 06/21/17 10:24 Dose: 12.5 mg Aztreonam 1 gm/ Sodium (Chloride) 100 mls @ 200 mls/hr IVPB Q8H [facility] Last Admin: 06/21/17 10:24 Dose: 200 mls/hr Vancomycin HCl 1,000 mg/ (Sodium Chloride) 200 mls @ 166.6 mls/hr IVPB Q12H [facility] Last Admin: 06/21/17 05:43 Dose: 166.6 mls/hr Losartan Potassium (Cozaar) 100 mg PO DAILY [facility] Last Admin: 06/21/17 10:24 Dose: 100 mg Pantoprazole Sodium (Protonix Ec Tab) 40 mg PO DAILY [facility] Last Admin: 06/21/17 10:25 Dose: 40 mg Trimethoprim/Sulfamethoxazole (Bactrim Ds Tab) 1 tab PO Q12H [facility] Last Admin: 06/21/17 05:43 Dose: 1 tab - Labs Labs: 06/20/17 08:17 06/20/17 08:17 - Constitutional Appears: Non-toxic, Chronically Ill - Head Exam Head Exam: NORMOCEPHALIC - Eye Exam Eye Exam: PERRL - ENT Exam ENT Exam: Normal External Ear Exam - Neck Exam Neck Exam: absent: Lymphadenopathy - Respiratory Exam Respiratory Exam: Decreased Breath Sounds, Rales - Cardiovascular Exam Cardiovascular Exam: REGULAR RHYTHM - GI/Abdominal Exam GI & Abdominal Exam: Distended, Soft - Rectal Exam Rectal Exam: Deferred - Exam Exam: NORMAL INSPECTION Assessment and Plan (1) Pneumonia Status: Acute (2) Pneumonia Status: Acute
--- NOTE | 2017-06-21 17:22 | CP.PCM.PN ---
Subjective - Date & Time of Evaluation Date of Evaluation: 06/21/17 Time of Evaluation: 17:21 - Subjective Subjective: PATIENT IS ON O2 3L AND PHYSICAL THERAPY EVAL THIS PATIENT WHEN AMBULATE PATIENT 02 SATURATION DROP AT 87% ---DR ESCOBEDO ON THE CASE MADE AWARE ABOUT THE FINDING DR MCELROY CLEAR THE PATIENT TO BE DC TOMORROW AFTER ONE MORE DAY OF ANTIBIOTIC IN HOUSE AND TO CONTINUE PO LEVAQUIN 750 MG FOR 7 DAYS IN THE JAIL Objective - Vital Signs/Intake and Output Vital Signs (last 24 hours): Temp Pulse Resp BP Pulse Ox 97.8 F 78 20 140/91 H 92 L 06/21/17 15:36 06/21/17 15:36 06/21/17 15:36 06/21/17 15:36 06/21/17 15:36 - Medications Medications: Current Medications Aspirin (Ecotrin) 81 mg PO DAILY [facility] Last Admin: 06/21/17 10:24 Dose: 81 mg Benzocaine/Menthol (Cepacol Sore Throat) 1 vikas MT Q4 PRN PRN Reason: Sore Throat Last Admin: 06/20/17 10:47 Dose: 1 vikas Clonidine HCl (Catapres) 0.2 mg PO BID [facility] Last Admin: 06/21/17 17:14 Dose: 0.2 mg Efavirenz/Emtricitabine/Tenofovir (Atripla 600 Mg-200 Mg-300 Mg) 1 tab PO DAILY [facility] Last Admin: 06/21/17 10:24 Dose: 1 tab Enoxaparin Sodium (Lovenox) 30 mg SC DAILY [facility] Last Admin: 06/21/17 10:25 Dose: Not Given Hydrochlorothiazide (Microzide) 12.5 mg PO DAILY [facility] Last Admin: 06/21/17 10:24 Dose: 12.5 mg Aztreonam 1 gm/ Sodium (Chloride) 100 mls @ 200 mls/hr IVPB Q8H [facility] Stop: 06/22/17 18:00 Last Admin: 06/21/17 17:14 Dose: 200 mls/hr Vancomycin HCl 1,000 mg/ (Sodium Chloride) 200 mls @ 166.6 mls/hr IVPB Q12H [facility] Last Admin: 06/21/17 05:43 Dose: 166.6 mls/hr Losartan Potassium (Cozaar) 100 mg PO DAILY [facility] Last Admin: 06/21/17 10:24 Dose: 100 mg Pantoprazole Sodium (Protonix Ec Tab) 40 mg PO DAILY [facility] Last Admin: 06/21/17 10:25 Dose: 40 mg Trimethoprim/Sulfamethoxazole (Bactrim Ds Tab) 1 tab PO Q12H [facility] Stop: 06/22/17 17:45 Last Admin: 06/21/17 17:14 Dose: 1 tab - Labs Labs: 06/20/17 08:17 06/20/17 08:17
[2017-06-22 08:06] VITALS: BP 137/84; PULSE 74; TEMP 98; O2SAT 95
--- NOTE | 2017-06-22 10:39 | CP.PCM.PN ---
Subjective - Date & Time of Evaluation Date of Evaluation: 06/22/17 Time of Evaluation: 10:36 - Subjective Subjective: PT FEELS BETTER. WOULD LIKE TO GO HOME. WILL DISCUSS WITH DR. MCELROY. Objective - Vital Signs/Intake and Output Vital Signs (last 24 hours): Temp Pulse Resp BP Pulse Ox 98.0 F 74 20 137/84 95 06/22/17 07:20 06/22/17 07:20 06/22/17 07:20 06/22/17 07:20 06/22/17 07:20 - Medications Medications: Current Medications Aspirin (Ecotrin) 81 mg PO DAILY [facility] Last Admin: 06/21/17 10:24 Dose: 81 mg Benzocaine/Menthol (Cepacol Sore Throat) 1 vikas MT Q4 PRN PRN Reason: Sore Throat Last Admin: 06/20/17 10:47 Dose: 1 vikas Clonidine HCl (Catapres) 0.2 mg PO BID [facility] Last Admin: 06/21/17 17:14 Dose: 0.2 mg Efavirenz/Emtricitabine/Tenofovir (Atripla 600 Mg-200 Mg-300 Mg) 1 tab PO DAILY [facility] Last Admin: 06/21/17 10:24 Dose: 1 tab Enoxaparin Sodium (Lovenox) 30 mg SC DAILY [facility] Last Admin: 06/21/17 10:25 Dose: Not Given Hydrochlorothiazide (Microzide) 12.5 mg PO DAILY [facility] Last Admin: 06/21/17 10:24 Dose: 12.5 mg Vancomycin HCl 1,000 mg/ (Sodium Chloride) 200 mls @ 166.6 mls/hr IVPB Q12H [facility] Last Admin: 06/22/17 05:31 Dose: 166.6 mls/hr Losartan Potassium (Cozaar) 100 mg PO DAILY [facility] Last Admin: 06/21/17 10:24 Dose: 100 mg Pantoprazole Sodium (Protonix Ec Tab) 40 mg PO DAILY [facility] Last Admin: 06/21/17 10:25 Dose: 40 mg - Labs Labs: 06/20/17 08:17 06/20/17 08:17 - Constitutional Appears: No Acute Distress, Chronically Ill - Eye Exam Eye Exam: Normal appearance, PERRL - ENT Exam ENT Exam: Mucous Membranes Moist - Respiratory Exam Respiratory Exam: Clear to Ausculation Bilateral, NORMAL BREATHING PATTERN - Cardiovascular Exam Cardiovascular Exam: REGULAR RHYTHM, +S1, +S2 - GI/Abdominal Exam GI & Abdominal Exam: Soft, Normal Bowel Sounds - Extremities Exam Extremities Exam: Full ROM, Normal Capillary Refill, Normal Inspection. absent : Joint Swelling, Pedal Edema - Back Exam Back Exam: NORMAL INSPECTION - Neurological Exam Neurological Exam: Alert, Awake, CN II-XII Intact, Normal Gait, Oriented x3 Assessment and Plan - Assessment and Plan (Free Text) Assessment: PNEUMONIA IMPROVING. HIV. Plan: CT PRESENT TREATMENT. PROBABLE DISCHARGE HOME.
[2017-06-22] MEDS: Pantoprazole 40 mg EC Tab PO SCH (10:40)
[2017-06-22] MEDS: Efavirenz/Emtricitabine/Teno 1 TAB PO SCH (10:40)
[2017-06-22] MEDS: Enoxaparin 30 mg Syringe SC SCH (10:42)
--- NOTE | 2017-06-24 05:43 | CARD ---
APPROVED REPORT EKG Measurement Heart [id number] 132P [id number] <Conclusion> Normal sinus rhythm Moderate voltage criteria for LVH, may be normal variant T wave abnormality, consider anterior ischemia Abnormal ECG
== END 2017-06-22 16:01 | disposition home or self-care (01) | DRG 974 ==
LOC: C.ER 13:42 → C.9E 17:43 → C.5S 22:33
PROVIDERS: ADMIT Internal Medicine Nephrology; ATTEND Internal Medicine
DX: B20 Human immunodeficiency virus [HIV] disease (principal); J18.9 Pneumonia, unspecified organism; R65.20 Severe sepsis without septic shock; A41.9 Sepsis, unspecified organism; I10 Essential (primary) hypertension; Z88.0 Allergy status to penicillin

== ENCOUNTER 2017-07-16 20:31 | Emergency (ER) | payer MEDICARE ==
--- NOTE | 2017-07-16 21:45 | C.PDOC ---
History Of Present Illness Patient presents to the ER with a complaint of worsening SOB and dyspnea on exertion and right chest wall pain when coughing. Patient states she was diagnosed with pneumonia 2 weeks ago, she was placed on 7 days of levaquin which she finished but with no relief; she was placed on 3 more days of levaquin but still without improvement. Patient is currently speaking in 4-5 word sentences and feels SOB when walking around. Denies chest pain, palpitations, fever, chills, nausea, or vomiting. Time Seen by Provider: 07/16/17 21:45 Chief Complaint (Nursing): Shortness Of Breath History Per: Patient History/Exam Limitations: no limitations Onset/Duration Of Symptoms: Days Current Symptoms Are (Timing): Still Present Initiating Event: Other (Pneumonia) Exacerbating Factor(s): Exertion Current Respiratory Medications: See Home Med List Severity: Moderate Pain Scale Rating Of: 4 Associated Symptoms: Other ((+)SOB, dyspnea on exertion, Cough (-)Nausea, Vomiting.). denies: Fever, Chills, Chest Pain Reports Recently: Treated By A Physician Recent travel outside of the [place]: No Additional History Per: Patient Past Medical History Reviewed: Historical Data, Nursing Documentation, Vital Signs Vital Signs: Last Vital Signs Temp 97.5 F L 07/17/17 00:00 Pulse 74 07/17/17 00:00 Resp 18 07/17/17 00:00 BP 175/78 H 07/17/17 00:00 Pulse Ox 96 07/17/17 00:00 - Medical History PMH: HTN Family History: States: No Known Family Hx - Social History Hx Tobacco Use: No Hx Alcohol Use: No Hx Substance Use: No - Immunization History Hx Tetanus Toxoid Vaccination: No Hx Influenza Vaccination: No Hx Pneumococcal Vaccination: No Review Of Systems Constitutional: Negative for: Fever, Chills Cardiovascular: Negative for: Chest Pain, Palpitations Respiratory: Positive for: Cough, Shortness of Breath, SOB with Excertion Gastrointestinal: Negative for: Nausea, Vomiting Musculoskeletal: Positive for: Other (Right chest wall pain with cough) Skin: Negative for: Rash Neurological: Negative for: Weakness Psych: Negative for: Anxiety Physical Exam - Physical Exam Appears: Non-toxic, No Acute Distress, Other (Speaking in 4-5 word sentences) Skin: Warm, Dry Head: Normacephalic Eye(s): bilateral: Normal Inspection Oral Mucosa: Moist Neck: Trachea Midline, Supple Chest: Symmetrical, No Tenderness Cardiovascular: Rhythm Regular Respiratory: No Rales, Rhonchi (Scattered), No Wheezing Gastrointestinal/Abdominal: Soft, No Tenderness Back: Normal Inspection Extremity: Normal ROM Extremity: Bilateral: Atraumatic Neurological/Psych: Oriented x3 Gait: Steady ED Course And Treatment - Laboratory Results Result Diagrams: 07/16/17 22:19 07/16/17 21:45 ECG: Interpreted By Me, Viewed By Me ECG Rhythm: Sinus Rhythm (65), Nonspecific Changes O2 Sat by Pulse Oximetry: 98 Pulse Ox Interpretation: Normal - Radiology CXR: Interpreted by Me, Viewed By Me CXR Interpretation: No: Infiltrates, Fracture, Pnemothorax Progress Note: CTA, EKG, blood work, flu swab, and CXR ordered. Albuterol nebulizer administered. Reevaluation Time: 00:53 Reassessment Condition: Improved Disposition Counseled Patient/Family Regarding: Studies Performed, Diagnosis, Need For Followup, Rx Given - Disposition Referrals: Felix Martin MD [Staff Provider] - Disposition: HOME/ ROUTINE Disposition Time: 21:45 Condition: FAIR Additional Instructions: Please finish the course of antibiotics. Prescriptions: Albuterol HFA [Ventolin HFA 90 mcg/actuation (8 g)] 2 puff IH [id number] 1 Days #1 puff Benzonatate [Tessalon Perles] 100 mg PO TID #20 sgl Instructions: Dyspnea (GEN), Acute Bronchitis (ED) Forms: [facility] ([place]) - Clinical Impression Clinical Impression: Bronchitis - Scribe Statement The provider has reviewed the documentation as recorded by the Scribisidra Richardson All medical record entries made by the Scribe were at my direction and personally dictated by me. I have reviewed the chart and agree that the record accurately reflects my personal performance of the history, physical exam, medical decision making, and the department course for this patient. I have also personally directed, reviewed, and agree with the discharge instructions and disposition.
[2017-07-16 22:14] LABS: VENOUS BLOOD GAS BASE EXCESS 1.5 mmol/L (0.0-2.0); VENOUS BLOOD GAS PCO2 43 mmHg (40-60); VENOUS BLOOD GAS PO2 43 mm/Hg (30-55)
[2017-07-16 22:15] LABS: BASO % 0.7 % (0.0-2.0); EOS # 0.4 K/uL (0.0-0.7); EOS % 8.8 % (0.0-4.0); HEMOGLOBIN 13.1 g/dL (11.0-16.0); LYMPH # 2.5 K/uL (1.0-4.3); LYMPH % 56.4 % (20.0-40.0); MEAN CELL VOLUME 92.3 fL (81.0-99.0); MEAN CORPUSCULAR HEMOGLOBIN 31.2 pg (27.0-31.0); MEAN CORPUSCULAR HGB CONC 33.8 g/dL (33.0-37.0); MEAN PLATELET VOLUME 8.2 fL (7.2-11.7); MONO # 0.5 K/uL (0.0-0.8); MONO % 10.8 % (0.0-10.0); NEUT % 23.3 % (50.0-75.0); RBC 4.21 Mil/uL (3.80-5.20); RED CELL DISTRIBUTION WIDTH 13.9 % (11.5-14.5)
[2017-07-16 22:19] LABS: WHITE BLOOD COUNT 4.4 K/uL (4.8-10.8)
[2017-07-16 22:53] VITALS: RESP 18
[2017-07-16 22:58] LABS: ALBUMIN 4.4 g/dL (3.5-5.0); ALT/SGPT 23 U/L (9-52); AST/SGOT 40 U/L (14-36); BLOOD UREA NITROGEN 7 mg/dL (7-17); CALCIUM 8.8 mg/dl (8.6-10.4); GFR AFRICAN-AMERICAN > 60; GFR NON-AFRICAN AMERICAN > 60
[2017-07-16] MEDS ORDERED: Albuterol-Ipratrop 3 mg / 0.5 (3 ml) UD ONE (23:13)
[2017-07-16] MEDS ORDERED: Iohexol 300 100 ML IJ ONE (23:19)
[2017-07-16] MEDS ORDERED: DiphenhydrAMINE 50 mg/ml Inj IVP STA (23:22)
[2017-07-16] MEDS: Albuterol-Ipratrop 3 mg / 0.5 (3 ml) UD IH SCH (23:31)
[2017-07-16] MEDS ORDERED: DiphenhydrAMINE 50 mg/ml Inj ONE (23:32)
--- NOTE | 2017-07-17 00:45 | CT ---
EXAM: CT Angiography Chest With Intravenous Contrast EXAM DATE/TIME: 07/16/2017 9:59 PM CLINICAL HISTORY: 61 years old, female; Pain; Chest pain; Patient HX: 06-15-17; Additional info: SOB TECHNIQUE: Axial computed tomographic angiography images of the chest with intravenous contrast using pulmonary embolism protocol. All CT scans at this facility use one or more dose reduction techniques, viz.: automated exposure control; ma/kV adjustment per patient size (including targeted exams where dose is matched to indication; i.e. head); or iterative reconstruction technique. MIP reconstructed images were created and reviewed. Coronal and sagittal reformatted images were created and reviewed. CONTRAST: 100 mL of [id number] administered intravenously. COMPARISON: CT - ANGIO CHEST PE PROTOCOL 2017-06-15 16:34 FINDINGS: Pulmonary arteries: The heart is mildly enlarged.There is fluid in pericardial recesses.There is no aneurysm or dissection. There is perfusion of the 3 arch vessels. A pulmonary artery is mildly prominent, there are no central pulmonary emboli. Patient motion and bolus timing limits evaluation of peripheral vessels. There are no large peripheral pulmonary emboli. Aorta: see above Lungs: Trachea and main bronchi are patent. Upper lung zones are clear. There is been interval improvement in aeration of both lower lobes. There is been partial clearing of bilateral lower lobe airspace disease. There is residual bronchiectasis. There is subsegmental atelectasis/scarring in both lower lobes. There is right middle lobe scarring and bronchiectasis, unchanged. There are no effusions. There is dependent atelectasis Pleural space: unremarkable Heart: unremarkable Mediastinum: Esophagus is unremarkable. There is a small hernia. There are mildly enlarged paratracheal nodes. There is no hilar adenopathy. Thyroid: Thyroid is unremarkable Bones/joints: There are degenerative changes in the osseus structures. Soft tissues: unremarkable Lymph nodes: See above. 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 IMPRESSION: Mild cardiomegaly, no aneurysm, dissection or pulmonary embolus; partial clearing of bilateral lower lobe airspace disease with residual subsegmental atelectasis/scarring and bronchiectasis, chronic changes in the right middle lobe Additional nonemergent findings as described above.
[2017-07-17 01:14] VITALS: BP 146/85; PULSE 75; TEMP 98.1; O2SAT 95
--- NOTE | 2017-07-17 10:20 | RAD ---
PROCEDURE: CHEST RADIOGRAPH, 1 VIEW HISTORY: Shortness of breath COMPARISON: 06/15/2017 FINDINGS: LUNGS: The lungs are well inflated. There is subsegmental atelectasis in the lower lobes. No focal consolidation PLEURA: No pneumothorax or pleural fluid seen. CARDIOVASCULAR: Normal. OSSEOUS STRUCTURES: No significant abnormalities. VISUALIZED UPPER ABDOMEN: Normal. OTHER FINDINGS: None. IMPRESSION: No active pulmonary disease.
--- NOTE | 2017-07-18 12:03 | CARD ---
APPROVED REPORT EKG Measurement Heart [id number] 154P [id number] <Conclusion> low atrial rhytm
== END 2017-07-17 01:20 | disposition home or self-care (01) ==
LOC: C.ER 20:31
DX: J40 Bronchitis, not specified as acute or chronic (principal)
CPT/HCPCS: 71045; 71275; 80053; 82803; 85025; 85378; 87040; 87804; 93005; 96374; 96375; 99285; J1200; J2930; Q9967

== ENCOUNTER 2018-07-31 10:33 | Outpatient (CLI) | payer MEDICARE | END 2018-07-31 10:34 | disposition home or self-care (01) | LOC: C.MAMMO 10:33 ==

== ENCOUNTER 2018-08-12 08:44 | Outpatient (CLI) | payer MEDICARE | END 2018-08-12 08:45 | disposition home or self-care (01) | LOC: C.USH 08:44 ==